=== PATIENT | male | born 2000 | race African-American/Black ===

== ENCOUNTER 2021-10-04 15:34 | Inpatient (IN) | payer MEDICAID, SELFPAY ==
--- NOTE | ~2021-10-04 | US_ITS ---
EXAMINATION: US ABDOMEN LIMITED CLINICAL INFORMATION: Right upper quadrant pain. Rule out gallstone.. COMPARISON: None TECHNIQUE: Real-time imaging of the right upper quadrant abdominal viscera. FINDINGS: GALLBLADDER: The gallbladder wall thickness is 0.2 cm. There is no echogenic stones, polyp or mass. There is echogenic mobile debris visualized. COMMON BILE DUCT: Normal in caliber measuring 0.5 cm in diameter. US/US abdomen limited IMPRESSION: Diffuse echogenic debris seen gallbladder without any echogenic stones or wall thickening. No pericholecystic fluid collection.
--- NOTE | ~2021-10-04 | NM_ITS ---
EXAMINATION: HEPATOBILIARY SCAN WITHOUT PHARMACY CLINICAL INFORMATION: Right upper quadrant/epigastric pain. COMPARISON: Ultrasound abdomen 09/26/2021. TECHNIQUE: Following intravenous administration of 5 mCi of 90 9M technetium mebrofenin, imaging over the right upper quadrant was obtained up to 60 minutes. FINDINGS: There is normal hepatic uptake without focal defect. The gallbladder is visualized by 12 minutes and the entire CBD is visualized by 12 minutes. The small bowel is visualized by 29 minutes. NM/NM hepatobiliary wo pharm IMPRESSION: Normal HIDA scan Patent cystic duct and CBD.
--- NOTE | ~2021-10-04 | CT_ITS ---
EXAMINATION: CT ABDOMEN AND PELVIS WITH CONTRAST CLINICAL INFORMATION: Diarrhea, vomiting. Evaluate for evaluate for UC flare up COMPARISON: None TECHNIQUE: Multidetector volumetric images were obtained from the superior aspect of the liver through the pubic symphysis following administration 85 mL of Omnipaque 350 intravenous contrast. Sagittal and coronal reformatted images were obtained on the technologist's workstation. Oral contrast: No This CT examination was performed using dose optimization techniques as appropriate, variously including the following: *Automated exposure control *Adjustment of mA and/or kV according to patient size (this includes techniques or standardized protocols for targeted exams where dose is matched to indication/reason for exam; i.e. extremities or head) *Use of iterative reconstruction technique DLP: 497 mGy-cm FINDINGS: LUNG BASES: The visualized lung bases are unremarkable. LIVER, GALLBLADDER, AND BILIARY TREE: The liver is normal in size, shape, and attenuation. No focal hepatic lesion or biliary ductal dilatation is present. The gallbladder is unremarkable with no evidence of radiopaque gallstones, gallbladder wall thickening, or obvious pericholecystic inflammatory changes. PANCREAS: Unremarkable. SPLEEN: Unremarkable. ADRENAL GLANDS: Unremarkable. KIDNEYS AND URETERS: The kidneys are normal in size, shape, and attenuation. No hydronephrosis, hydroureter, or calculi seen. No perinephric stranding. BLADDER: Unremarkable. GASTROINTESTINAL TRACT: There is scattered stool and gas seen throughout the colon without any significant distention. There is not cystic mild mural thickening of descending colon likely underdistention. Nondistended fluid-filled small bowel loops are seen in the pelvis. Appendix is not visualized no free air or free fluid seen. ABDOMINAL WALL: No significant hernia is appreciated. LYMPH NODES: Normal. VASCULAR: Unremarkable. PELVIC VISCERA: Unremarkable. OSSEOUS STRUCTURES: Unremarkable. CT/CT abdomen pelvis w con IMPRESSION: No acute intra-abdominal process seen. Fleischner guidelines were followed.
[2021-10-04 16:38] VITALS: BP 140/73; PULSE 69; RESP 18; TEMP 37.2; O2SAT 100; BMI 23.1
[2021-10-04 18:00] VITALS: BP 124/68; PULSE 56; RESP 16; TEMP 37.2; O2SAT 100
--- NOTE | 2021-10-04 19:15 | ED_ITS ---
HPI - Abdominal Pain General Chief Complaint: Abdominal Pain Stated Complaint: abd pain colitis Time Seen by Provider: 10/04/21 18:46 Source: patient Mode of arrival: ambulatory Limitations: no limitations History of Present Illness HPI narrative: 21-year-old male with a history of ulcerative colitis and sclerosing cholangitis who presents emergency department for evaluation of abdominal pain, nausea, vomiting, diarrhea and weight loss x1 week. The patient points to his epigastric area when asked to localize his pain. He states the pain is a constant, squeezing sensation which came on gradually but is gotten progressively worse. He states that the pain is now 8/10. The patient has had constant nausea with 6 episodes of vomiting per day. He states he is vomiting bile. He also states that his 3-4 episodes of diarrhea per day. His diarrhea consists of liquidy, green mucus with no blood. He states he has not been able to eat over the last 24 hours but he is able to drink some liquid. He states th at he has lost 15 lb over the past week. The patient has a boston cutter at [facility] but it does not have 1 here in this area. The patient is treated with Humira once a week. He states that he was on Ursodiol for elevated bilirubins. He states that he had ulcers in his mouth with increased epigastric pain 2 months prior and stop the Ursodiol which seemed improved the symptoms. He also was concerned that his pain was caused by his Humira therefore he stop this 3 weeks ago as well. He states that he has received the Moderna vaccine times 2 and he has received a booster shot as well. States that he tested himself yesterday at home for COVID-19 and this was negative. Related Data Allergies Allergy/AdvReac Type Severity Reaction Status Date / Time amoxicillin [From Allergy Hives Verified 10/04/21 16:38 Augmentin] clavulanic acid Allergy Hives Verified 10/04/21 16:38 [From Augmentin] Review of Systems Review of Systems Yes all other systems are reviewed and are negative Physical Exam Verdana 4l Vital Signs: Verdana 4d Verdana 4d Vital Signs: Verdana 4d Verdana 4Bd Last Vital Signs Verdana 4d Shut Off Worker New 4d Shut Off Worker New 4d Temp 98.2 F 10/04/21 20:52 Shut Off Worker New 4d Pulse 66 10/04/21 21:22 Shut Off Worker New 4d Resp 10/04/21 20:52 BP 127/68 10/04/21 21:22 Pulse Ox 100 10/04/21 21:22 BMI result Body Mass Index 23.1 Const: Other: Very pleasant and cooperative male patient, does not appear to be in distress, answers all questions appropriately HENMT: Head: Yes normal to inspection, Yes normocephalic and Yes atraumatic Ears: external ears normal General nose exam: Normal external nose present Face and sinus: Yes normal facial exam Mouth: Normal oral and palatal mucosa present Throat: Yes posterior oropharynx normal Eyes: General: appearance normal, both eyes and all related structures Pupils: Equal, round and reactive pupils present Neck: Neck: Yes normal visual inspection, Yes no lymphadenopathy, Yes trachea midline and Yes supple Chest: Chest palpation & inspection: normal inspection of the chest and normal palpation of entire chest wall Resp: Effort & Inspection: normal respiratory effort and able to speak in complete sentences Auscultation: clear to auscultation bilaterally Cardio: Rate: regular rate Rhythm: regular rhythm Heart sounds: S1 normal heart sound present, S2 normal heart sound present and no murmurs GI: Inspection: Yes normal to inspection Palpation (GI): Soft to palpation, Tenderness to palpation present (GI) in the epigastrum (Moderate) and in the RLQ (Moderate) and no guarding Auscultation: normal bowel sounds : General: Yes no CVA tenderness Back/Spine/Pelvis: Back: no CVA tenderness Skin: General skin exam: no rashes or lesions noted Neuro: Cranial nerves: Yes CN's II-XII intact bilaterally and Yes Equal, round and reactive pupils present Cognition (Neuro): normal cognition Motor exam (neuro): 5/5 motor strength present throughout Extrem: General: Yes normal to inspection Psych: Appearance: grossly normal Speech and movement: Normal speech and movement present Affect: normal affect Attitude: cooperative Thought process: Normal thought process present Thought content: Normal thought content present Course Course Course Narrative: 21-year-old male who presents emergency department for evaluation of abdominal pain, nausea, vomiting and diarrhea x1 week. The patient does have a history of ulcerative colitis and sclerosing cholangitis, he is being treated with Humira by his boston cutter, Dr. Rivera at [facility]. The patient has also had a 15 lb weight loss over the past week. Initial vital signs revealed an elevated blood pressure of 140/73 repeat was 124/68, vital signs were otherwise normal. Abdominal exam did reveal epigastric and left- sided abdominal tenderness. Patient's presentation is consistent with a flare- up of his ulcerative colitis. I did order a CBC, CMP, lipase, CRP, ESR, blood cultures x2, C diff, stool culture, CT abdomen pelvis with IV contrast. Patient was ordered to get normal saline IV x1 L, morphine 4 mg IV and Zofran 4 mg IV. 2201: The patient's laboratory evaluation was unremarkable. He had a normal CRP and sedimentation rate. CT scan of the abdomen pelvis did not reveal any evidence for ulcerative colitis or any other acute abnormality to explain his pain, nausea and vomiting. I did discuss the patient's presentation with the covering boston cutter, Dr. Fernández. He recommended that the patient be treated with IV PPIs, Zofran, IV fluids, stool specimens and diet as tolerated. He also requested an ultrasound in the morning to look at the patient gallbladder. I did discuss the patient's presentation with the covering hospita list, Dr. Perrin and the patient will be admitted for further treatment. MDM - Abdominal Pain Lab Data Result diagrams: 10/04/21 19:47 10/04/21 19:47 Labs: Lab Results 10/04/21 10/04/21 10/04/21 Range/Units 19:46 19:47 19:47 WBC 7.3 (4.8-10.8) X10*3/uL RBC 5.02 (4.60-5.80) X10*6/uL Hgb 15.7 (14.0-18.0) g/dl Hct 44.5 (42.0-52.0) % MCV 88.6 (80.0-98.0) fL MCH 31.3 (27.0-33.0) pg MCHC 35.3 (31.0-36.0) g/dl RDW 11.8 (11.0-16.0) % Plt Count 235 (160-400) X10*3/uL MPV 10.7 (9.4-12.4) fL Immature Gran % (Auto) 0.1 (0.0-0.4) % Neut % (Auto) 45.0 (45-73) % Lymph % (Auto) 49.7 H (20-40) % [place] % (Auto) 4.7 (2-11) % Eos % (Auto) 0.1 (0-4) % Baso % (Auto) 0.4 (0-2) % Lymph # (Auto) 3.6 (1.2-4.9) X10*3/uL [place] # (Auto) 0.3 (0.1-1.2) X10*3/uL Eos # (Auto) 0.0 (0.0-0.4) X10*3/uL Baso # (Auto) 0.0 (0.0-0.2) X10*3/uL Abs Immat Gran (auto) 0.01 (0.00-0.03) X10*3/uL Absolute Neuts (auto) 3.3 (2.0-8.3) x10*3/uL Absolute Nucleated RBC 0.000 (0.0-0.012) X10*3/uL Nucleated RBC % (auto) 0.0 (0.0-0.2) /100WBC ESR 2 (0-15) MM/HR Sodium (135-145) mmol/L Potassium (3.3-5.1) mmol/L Chloride (96-108) mmol/L Carbon Dioxide (22-29) mmol/L Anion Gap (12-20) BUN (9-16) mg/dL Creatinine (0.5-1.4) mg/dL Estim Creat Clear Calc Estimated GFR Random Glucose (60-115) mg/dL Lactic Acid 1.0 (0.5-2.0) mmol/L Calcium (8.4-10.2) mg/dL Total Bilirubin (0.0-1.0) mg/dL AST (5-37) U/L ALT (0-40) U/L Alkaline Phosphatase (39-117) U/L C-Reactive Protein (< or = 0.50) mg/dL Total Protein (6.5-8.0) g/dL Albumin (3.5-5.0) g/dL Lipase (8-78) U/L COVID-19 (ROBIN) (Negative) COVID-19 Clin Com 10/04/21 10/04/21 Range/Units 19:47 19:48 WBC (4.8-10.8) X10*3/uL RBC (4.60-5.80) X10*6/uL Hgb (14.0-18.0) g/dl Hct (42.0-52.0) % MCV (80.0-98.0) fL MCH (27.0-33.0) pg MCHC (31.0-36.0) g/dl RDW (11.0-16.0) % Plt Count (160-400) X10*3/uL MPV (9.4-12.4) fL Immature Gran % (Auto) (0.0-0.4) % Neut % (Auto) (45-73) % Lymph % (Auto) (20-40) % [place] % (Auto) (2-11) % Eos % (Auto) (0-4) % Baso % (Auto) (0-2) % Lymph # (Auto) (1.2-4.9) X10*3/uL [place] # (Auto) (0.1-1.2) X10*3/uL Eos # (Auto) (0.0-0.4) X10*3/uL Baso # (Auto) (0.0-0.2) X10*3/uL Abs Immat Gran (auto) (0.00-0.03) X10*3/uL Absolute Neuts (auto) (2.0-8.3) x10*3/uL Absolute Nucleated RBC (0.0-0.012) X10*3/uL Nucleated RBC % (auto) (0.0-0.2) /100WBC ESR (0-15) MM/HR Sodium 141 (135-145) mmol/L Potassium 4.0 (3.3-5.1) mmol/L Chloride 102 (96-108) mmol/L Carbon Dioxide 27 (22-29) mmol/L Anion Gap 16 (12-20) BUN 12 (9-16) mg/dL Creatinine 1.10 (0.5-1.4) mg/dL Estim Creat Clear Calc 134.0 Estimated GFR > 60 Random Glucose 91 (60-115) mg/dL Lactic Acid (0.5-2.0) mmol/L Calcium 10.8 H (8.4-10.2) mg/dL Total Bilirubin 0.9 (0.0-1.0) mg/dL AST 20 (5-37) U/L ALT 13 (0-40) U/L Alkaline Phosphatase 59 (39-117) U/L C-Reactive Protein < 0.02 (< or = 0.50) mg/dL Total Protein 9.0 H (6.5-8.0) g/dL Albumin 5.5 H (3.5-5.0) g/dL Lipase 13 (8-78) U/L COVID-19 (ROBIN) Negative (Negative) COVID-19 Clin Com See Note [facility] Past Medical History [facility] Narrative: Past medical history: Ulcerative colitis, sclerosing cholangitis. Past surgical history: None. Social history: Patient lives in [facility] he has been under increased stress secondary to his work and family issues. He denies tobacco use. He rarely drinks alcohol. He denies drug use. Social History Social History Alcohol intake: current Alcohol intake frequency: a few times a month Patient Tobacco Use Status: Never used Tobacco Use of substances other than those prescribed or required for medical reasons: No Advance Directives: No Advance Directives Information Provided: Yes
[2021-10-04 19:49] VITALS: RESP 18
[2021-10-04] MEDS: Morphine Sulfate 4 MG/ML CARTRIDGE IVPUSH ×2 (19:49→21:23)
[2021-10-04] MEDS: ondansetron HCL 4 MG/2 ML VIAL IVPUSH (19:49)
[2021-10-04] MEDS: 0.9 % Sodium Chloride 1,000 ML 999 ML IV (19:50)
[2021-10-04 19:57] LABS: MANUAL DIFF FLAG NO
[2021-10-04 19:59] LABS: Basophils Percent Auto 0.4 % (0-2); Eosinophils Percent Auto 0.1 % (0-4); Hematocrit 44.5 % (42.0-52.0); Hemoglobin 15.7 g/dl (14.0-18.0); Imm Gran Abs Auto 0.01 X10*3/uL (0.00-0.03); Imm Gran Pct Auto 0.1 % (0.0-0.4); Lymphocytes Absolute Auto 3.6 X10*3/uL (1.2-4.9); Lymphocytes Percent Auto 49.7 % (20-40); Mean Corpuscular HGB Conc 35.3 g/dl (31.0-36.0); Mean Corpuscular Hemoglobin 31.3 pg (27.0-33.0); Mean Corpuscular Volume 88.6 fL (80.0-98.0); Mean Platelet Volume 10.7 fL (9.4-12.4); Monocytes Absolute Auto 0.3 X10*3/uL (0.1-1.2); Monocytes Percent Auto 4.7 % (2-11); Neutrophils Absolute Auto 3.3 x10*3/uL (2.0-8.3); Platelet Count 235 X10*3/uL (160-400); Red Blood Count 5.02 X10*6/uL (4.60-5.80); Red Cell Distribution Width 11.8 % (11.0-16.0); White Blood Count 7.3 X10*3/uL (4.8-10.8)
[2021-10-04 20:16] LABS: COVID-19 Test Negative (Negative)
[2021-10-04 20:21] LABS: Alanine Aminotransferase 13 U/L (0-40); Albumin Level 5.5 g/dL (3.5-5.0); Alkaline Phosphatase 59 U/L (39-117); Anion Gap 16 (12-20); Aspartate Amino Transferase 20 U/L (5-37); Bilirubin Total 0.9 mg/dL (0.0-1.0); Blood Urea Nitrogen 12 mg/dL (9-16); C Reactive Protein < 0.02 mg/dL (< or = 0.50); Calcium 10.8 mg/dL (8.4-10.2); Carbon Dioxide 27 mmol/L (22-29); Chloride 102 mmol/L (96-108); Estimated Glomerular Filt Rate > 60; Glucose Random 91 mg/dL (60-115); Lipase 13 U/L (8-78); Sodium 141 mmol/L (135-145)
[2021-10-04] MEDS: iohexoL 350 MG/ML 100 ML INFUS..BTL IV (20:42)
[2021-10-04 20:44] LABS: Erythrocyte Sedimentation Rate 2 MM/HR (0-15)
[2021-10-04 20:52] VITALS: BP 136/69; PULSE 73; RESP 20; TEMP 36.8; O2SAT 100
[2021-10-04 21:22] VITALS: BP 127/68; PULSE 66; O2SAT 100
[2021-10-04] MEDS: Pantoprazole Sodium 40 MG/10 ML VIAL IVPUSH (21:23)
--- NOTE | 2021-10-04 22:10 | P.HPHOSP_ITS ---
History of Present Illness Date of Service: 10/04/21 Chief Complaint: n,v,d This is a 21-year-old male with past medical history of ulcerative colitis and sclerosing cholangitis who presents to the hospital with complaints of abdominal pain, nausea and vomiting,as well as diarrhea for the past 1 week that has been progressively getting worse Pain is around the epigastric area, constant, nonradiating, 8/10, no relieving factors. His had about 6 episodes of n/v daily, as well as non-bloody dirrhea 3-4 episodes each day. . Has not been able to keep anything down for the past 2 days and has lost significant weight over the last week- reports about 15 lbs. of note The patient is treated with Humira once a week.? He states that he was on Ursodiol for elevated bilirubins.? He states that he had? ulcers in his mouth with increased epigastric pain 2 months prior and stop the Ursodiol which seemed improved the symptoms.? He also was concerned that his pain was caused by his Humira therefore he stop this 3 weeks ago as well. - pt confirmed this information on my exam On arrival to the ED patient hemodynamically stable with no significant abnormal vitals Labs reviewed are unremarkable ABD/pelvic CT showed no acute intra-abdominal process, Gastroenterology was consulted, recommended PPI, antiemetics and admission for evaluation. C diff pending Review of Systems Verdana 4l Review of Systems: Yes all other systems are reviewed and Verdana 4d are negative [facility] Medical History (Updated 10/05/21 @ 06:59 by Rukhsana Perrin MD) Sclerosing cholangitis Ulcerative colitis Pertinent family history: No hx of CAD Surgical History (Updated 10/05/21 @ 06:59 by Rukhsana Perrin MD) No pertinent past surgical history Social History Household Members: Significant Other and Friend(s) Housing: Apartment Alcohol intake: current Alcohol intake frequency: a few times a month Patient Tobacco Use Status: Never used Tobacco Use of substances other than those prescribed or required for medical reasons: No Have you been hit, kicked, punched, or otherwise hurt by someone within the past year? If so, by whom?: No Do you feel safe in your current relationship?: Yes Is there a partner from a previous relationship who is making you feel unsafe now?: No Are you made to feel afraid or neglected: No Advance Directives: No Advance Directives Information Provided: Yes Do you have thoughts of harming others: None Do you have a plan to hurt others: No Plan Recently lost weight without trying: No Eating poorly because of decreased appetite: No Nutrition Risks: No Nutritional Risk Poor oral hygiene: No Meds Allergies Allergy/AdvReac Type Severity Reaction Status Date / Time amoxicillin [From Allergy Hives Verified 10/04/21 16:38 Augmentin] clavulanic acid Allergy Hives Verified 10/04/21 16:38 [From Augmentin] Physical Exam Verdana 4l Vital Signs and Narrative: Verdana 4d Verdana 4d Vital Signs: Verdana 4d Verdana 4Bd Last Vital Signs Verdana 4d Improvement Director New 4d Improvement Director New 4d Temp 98.2 F 10/04/21 20:52 Improvement Director New 4d Pulse 66 10/04/21 21:22 Improvement Director New 4d Resp 20 10/04/21 20:52 BP 127/68 10/04/21 21:22 Pulse Ox 100 10/04/21 21:22 BMI result Body Mass Index 23.1 Results Labs CBC and Chem 7: 10/04/21 19:47 10/04/21 19:47 Labs: Laboratory Results - last 24 hr 10/04/21 10/04/21 10/04/21 19:46 19:47 19:47 MCV 88.6 MCH 31.3 MCHC 35.3 RDW 11.8 Plt Count 235 MPV 10.7 Immature Gran % (Auto) 0.1 Neut % (Auto) 45.0 Lymph % (Auto) 49.7 H [place] % (Auto) 4.7 Eos % (Auto) 0.1 Baso % (Auto) 0.4 Lymph # (Auto) 3.6 [place] # (Auto) 0.3 Eos # (Auto) 0.0 Baso # (Auto) 0.0 Abs Immat Gran (auto) 0.01 Absolute Neuts (auto) 3.3 Absolute Nucleated RBC 0.000 Nucleated RBC % (auto) 0.0 ESR 2 Anion Gap Estim Creat Clear Calc Estimated GFR Random Glucose Lactic Acid 1.0 Calcium Total Bilirubin AST ALT Alkaline Phosphatase C-Reactive Protein Total Protein Albumin Lipase COVID-19 (ROBIN) COVID-19 Clin Com 10/04/21 10/04/21 19:47 19:48 MCV MCH MCHC RDW Plt Count MPV Immature Gran % (Auto) Neut % (Auto) Lymph % (Auto) [place] % (Auto) Eos % (Auto) Baso % (Auto) Lymph # (Auto) [place] # (Auto) Eos # (Auto) Baso # (Auto) Abs Immat Gran (auto) Absolute Neuts (auto) Absolute Nucleated RBC Nucleated RBC % (auto) ESR Anion Gap 16 Estim Creat Clear Calc 134.0 Estimated GFR > 60 Random Glucose 91 Lactic Acid Calcium 10.8 H Total Bilirubin 0.9 AST 20 ALT 13 Alkaline Phosphatase 59 C-Reactive Protein < 0.02 Total Protein 9.0 H Albumin 5.5 H Lipase 13 COVID-19 (ROBIN) Negative COVID-19 Clin Com See Note Imaging Radiologist's Impressions: Impressions Abdomen/Pelvis CT 10/04/21 20:59 IMPRESSION: No acute intra-abdominal process seen. Fleischner guidelines were followed. Assessment and Plan (1) Abdominal pain, epigastric: Status: Acute (2) Gastroenteritis: Status: Acute Plan 21 yo M with past medical history of ulcerative colitis and sclerosing cholangitis presents to the hospital with abdominal pain found to have possible gastroenteritis # abd pain, nausea, vomiting, diarrhea - likely 2/2 UC flare vs gastroenteritis - CT abd negative - GI consulted recommended PPI, zofran, IV fluids - C diff and stool cultures pending - supportive measures - will need follow up with GI op to resume his Humira DVT ppx: lovenox Quality Stroke Does the patient have a stroke diagnosis?: No VTE Prior VTE?: No VTE Risk Level:: Medical - moderate - high VTE Device Contraindication: Treatment Not Indicated VTE Drug Contraindication: N/A - Med Ordered
[2021-10-04] MEDS: Lactated Ringers 1,000 ML 100 ML IVCONT (22:49)
[2021-10-05] VITALS (9 sets, daily range): BP systolic 94–138; BP diastolic 50–78; PULSE 40–50; RESP 15–18; TEMP 35.6–36.6; O2SAT 98–100
[2021-10-05] MEDS: Enoxaparin Sodium 40 MG/0.4 ML SYRINGE SUBCUT
[2021-10-05 06:22] LABS: Basophils Percent Auto 0.3 % (0-2); Eosinophils Absolute Auto 0.1 X10*3/uL (0.0-0.4); Hematocrit 37.3 % (42.0-52.0); Hemoglobin 12.8 g/dl (14.0-18.0); Imm Gran Abs Auto 0.01 X10*3/uL (0.00-0.03); Imm Gran Pct Auto 0.2 % (0.0-0.4); Lymphocytes Absolute Auto 4.4 X10*3/uL (1.2-4.9); MANUAL DIFF FLAG SCAN; Mean Corpuscular HGB Conc 34.3 g/dl (31.0-36.0); Mean Corpuscular Hemoglobin 30.8 pg (27.0-33.0); Mean Corpuscular Volume 89.9 fL (80.0-98.0); Mean Platelet Volume 10.9 fL (9.4-12.4); Monocytes Absolute Auto 0.4 X10*3/uL (0.1-1.2); Monocytes Percent Auto 5.6 % (2-11); Neutrophils Absolute Auto 1.5 x10*3/uL (2.0-8.3); Neutrophils Percent Auto 22.9 % (45-73); Platelet Count 194 X10*3/uL (160-400); Red Blood Count 4.15 X10*6/uL (4.60-5.80); Red Cell Distribution Width 11.7 % (11.0-16.0); SCAN SMEAR FLAG 1; White Blood Count 6.3 X10*3/uL (4.8-10.8)
[2021-10-05] MEDS: Morphine Sulfate 4 MG/ML CARTRIDGE IVPUSH ×2 (06:48→11:10)
[2021-10-05] MEDS: Pantoprazole Sodium 40 MG/10 ML VIAL IVPUSH ×2 (06:49→16:13)
[2021-10-05 06:50] LABS: Anion Gap 9 (12-20); Blood Urea Nitrogen 12 mg/dL (9-16); Calcium 9.5 mg/dL (8.4-10.2); Carbon Dioxide 30 mmol/L (22-29); Chloride 106 mmol/L (96-108); Creatinine Clr Calc Pharmacy 143.1; Estimated Glomerular Filt Rate > 60; Glucose Random 80 mg/dL (60-115); Potassium 4.4 mmol/L (3.3-5.1); Sodium 141 mmol/L (135-145)
[2021-10-05 07:23] LABS: SLIDE REVIEW VERIFIED
--- NOTE | 2021-10-05 07:55 | P.PNIM_ITS ---
Subjective Subjective Date of Service: 10/05/21 Interval History: Ucolitis Review of Systems persistent nausea vomiting abd pain slightly better Physical Exam Verdana 4l Vital Signs: Verdana 4d Verdana 4d Vital Signs: Verdana 4d Verdana 4Bd Last Vital Signs Verdana 4d Cigarette Making Examiner 4d Cigarette Making Examiner 4d Temp 96.9 F 10/05/21 02:00 Cigarette Making Examiner New 4d Pulse 45 L 10/05/21 02:00 Cigarette Making Examiner New 4d Resp 18 10/05/21 02:00 BP 137/57 L 10/05/21 02:00 Pulse Ox 98 10/05/21 02:00 BMI result Body Mass Index 23.1 Appearance: Alert.? Oriented X3.? not in distress.? Eyes: Pupils equal, round and reactive to light.? Sclera nonicteric.? ENT: Pharynx normal.? Moist mucous membranes. cvs: rrr, [id number] , no murmur res: clear to auscultation ,no rhonchii or wheezing abd: no rebound or guarding ,abd pain improving in epigastric and still tense , bs present. ext pulses present , no cyanosis ,Gait well balanced well coordinated. neuro: axo3 , nonfocal. Objective Data Active Medications Acetaminophen (Acetaminophen 325 Mg Tablet) 650 mg PO Q6H PRN PRN Reason: Pain, Mild (Pain Scale 1-3) Docusate Sodium (Docusate Sodium 100 Mg Capsule) 100 mg PO DAILY PRN PRN Reason: Constipation Enoxaparin Sodium (Enoxaparin Sodium 40 Mg/0.4 Ml Syringe) 40 mg SUBCUT Q24H [facility] Last Admin: 10/05/21 00:00 Dose: 40 mg Documented by: JOHNNA Lactated Ringer's (Lr) 1,000 mls @ 100 mls/hr IVCONT .Q10H [facility] Last Admin: 10/04/21 22:49 Dose: 100 mls/hr Documented by: JOHNNA Morphine Sulfate (Morphine Sulfate 4 Mg/Ml Cartridge) 4 mg IVPUSH Q4H PRN; Protocol PRN Reason: Pain, Severe (Pain Scale 7-10) Last Admin: 10/05/21 06:48 Dose: 4 mg Documented by: DELROY Ondansetron HCl (Ondansetron Hcl 4 Mg/2 Ml Vial) 4 mg IVPUSH Q8H PRN PRN Reason: Nausea and Vomiting Pantoprazole Sodium (Pantoprazole Sodium 40 Mg/10 Ml Vial) 40 mg IVPUSH BID@0630,1630 [facility] Last Admin: 10/05/21 06:49 Dose: 40 mg Documented by: DELROY Sodium Chloride (0.9 % Sodium Chloride Flush 3 Ml Syringe) 3 ml IVFLUSH QSHIFT [facility] Last Admin: 10/05/21 07:20 Dose: Not Given Documented by: MOLLY Non-Admin Reason: IV Running Labs CBC & Chem 7: 10/05/21 06:00 10/05/21 06:00 Labs: Laboratory Results - last 24 hr 10/04/21 10/04/21 10/04/21 19:46 19:47 19:47 MCV 88.6 MCH 31.3 MCHC 35.3 RDW 11.8 Plt Count 235 MPV 10.7 Immature Gran % (Auto) 0.1 Neut % (Auto) 45.0 Lymph % (Auto) 49.7 H [place] % (Auto) 4.7 Eos % (Auto) 0.1 Baso % (Auto) 0.4 Lymph # (Auto) 3.6 [place] # (Auto) 0.3 Eos # (Auto) 0.0 Baso # (Auto) 0.0 Abs Immat Gran (auto) 0.01 Absolute Neuts (auto) 3.3 Absolute Nucleated RBC 0.000 Nucleated RBC % (auto) 0.0 Smear Tech's Comments ESR 2 Anion Gap Estim Creat Clear Calc Estimated GFR Random Glucose Lactic Acid 1.0 Calcium Total Bilirubin AST ALT Alkaline Phosphatase C-Reactive Protein Total Protein Albumin Lipase COVID-19 (ROBIN) COVID-19 Clin Com 10/04/21 10/04/21 10/05/21 19:47 19:48 06:00 MCV 89.9 MCH 30.8 MCHC 34.3 RDW 11.7 Plt Count 194 MPV 10.9 Immature Gran % (Auto) 0.2 Neut % (Auto) 22.9 L Lymph % (Auto) 70.0 H [place] % (Auto) 5.6 Eos % (Auto) 1.0 Baso % (Auto) 0.3 Lymph # (Auto) 4.4 [place] # (Auto) 0.4 Eos # (Auto) 0.1 Baso # (Auto) 0.0 Abs Immat Gran (auto) 0.01 Absolute Neuts (auto) 1.5 L Absolute Nucleated RBC 0.000 Nucleated RBC % (auto) 0.0 Smear Tech's Comments VERIFIED ESR Anion Gap 16 Estim Creat Clear Calc 134.0 Estimated GFR > 60 Random Glucose 91 Lactic Acid Calcium 10.8 H Total Bilirubin 0.9 AST 20 ALT 13 Alkaline Phosphatase 59 C-Reactive Protein < 0.02 Total Protein 9.0 H Albumin 5.5 H Lipase 13 COVID-19 (ROBIN) Negative COVID-19 Clin Com See Note 10/05/21 06:00 MCV MCH MCHC RDW Plt Count MPV Immature Gran % (Auto) Neut % (Auto) Lymph % (Auto) [place] % (Auto) Eos % (Auto) Baso % (Auto) Lymph # (Auto) [place] # (Auto) Eos # (Auto) Baso # (Auto) Abs Immat Gran (auto) Absolute Neuts (auto) Absolute Nucleated RBC Nucleated RBC % (auto) Smear Tech's Comments ESR Anion Gap 9 L Estim Creat Clear Calc 143.1 Estimated GFR > 60 Random Glucose 80 Lactic Acid Calcium 9.5 D Total Bilirubin AST ALT Alkaline Phosphatase C-Reactive Protein Total Protein Albumin Lipase COVID-19 (ROBIN) COVID-19 Clin Com Assessment and Plan (1) Gastroenteritis: Status: Acute (2) Abdominal pain, epigastric: Status: Acute Plan 21 yo M with past medical history of ulcerative colitis and sclerosing cholangi tis presents to the hospital with abdominal pain found to have possible gastroenteritis 1.abd pain, nausea, vomiting, diarrhea?- likely 2/2 UC flare vs gastroenteritis esr and crp normal,CT abd negative, C diff and stool cultures pending supportive measures , GI recommended PPI, zofran, IV fluids abd pain seems improving ,but still ca not tolerate diet will need follow? up with GI op to resume his Humira Gi eval pendin DVT ppx: lovenox Quality Stroke Does the patient have a stroke diagnosis?: No VTE Prior VTE?: No VTE Risk Level:: Medical - moderate - high VTE Device Contraindication: Treatment Not Indicated VTE Drug Contraindication: N/A - Med Ordered
--- NOTE | 2021-10-05 08:48 | PHA.MEDREC ---
med rec complete, patient not very sure of doses, has not been on his medications for a week or so Pharmacy Consult ? Medication Reconciliation Pharmacy has completed the medication reconciliation.
--- NOTE | 2021-10-05 09:08 | MHC.CM.PN ---
PATIENT LIVES WITH FRIENDS HE IS FULLY INDEPENDENT WITH HIS ADLS CAR IS IN LOT. HE NO LONGER HAS A PCP BUT IS UNABLE TO RECALL THE NAME. PATIENT ALSO STATES HE HAS NOT SEEN THE PCP IN QUITE SOME TIME. PATIENT REPORTS BEING COVID VACCINATED AND A BOOSTER (MODERNA SERIES) BUT DOES NOT HAVE HIS SHOT RECORD ON HIM. NO HCP ON FILE. WHEN PATIENT IS FEELING BETTER, HE WILL CONSIDER COMPLETING ONE FOR MEDICAL RECORDS. PLAN IS HOME - SELF CARE. CASE MANAGEMENT FOLLOWING FOR ANY CHANGES IN PLAN.
[2021-10-05] MEDS: Lactated Ringers 1,000 ML 100 ML IVCONT (11:11)
[2021-10-05] MEDS: ondansetron HCL 4 MG/2 ML VIAL IVPUSH ×3 (12:37→19:20)
[2021-10-05] MEDS: HYDROmorphone HCl 1 MG/ML SYRINGE 0.5 MG IVPUSH ×2 (14:36→22:00)
[2021-10-05] MEDS: 0.9 % Sodium Chloride Flush 3 ML SYRINGE IVFLUSH (14:37)
--- NOTE | 2021-10-05 16:08 | PM.EVENT ---
Event Note Date of Service: 10/05/21 Event Note: GI Consult-Full note dictated Imp: Overall, his 1 week history of primarily UGI c/o upper abdominal pain, anorexia, and vomiting with just some loose stools seems different than his usual colitis flares that he has had in the past. His unremarkable CT in regard to signs of active colitis, normal ESR and CRP, his GB U/S with debris , and his tenderness in the RUQ/Epigastric areas makes me more suspicious for something other than colitis, such as GB disease or peptic ulcer disease. He denies any NSAIDs, travel, ill contacts, antibiotic use. alcohol, marijuana, drugs, nor cigarettes. Rec: I would continue to hold off on steroids since this doesn't seem c/w a flare of his ulcerative colitis at this time. Continue the IV PPI and supportive care otherwise. I will order a HIDA scan with [facility] for further assessment of the gallbladder(hopefully they can do it tomorrow). Continue clear liquids for now. He may need a surgery consult and/or an upper endoscopy pending the results and his clinical course. I will also reach out to his [facility] MD, Dr. Pearson, . D/W patient in detail and he is comfortable with this plan. Thanks
[2021-10-05] MEDS: HYDROmorphone HCl 0.5 MG/0.5 ML SYRINGE IVPUSH (17:27)
[2021-10-05] MEDS: Metoclopramide HCl 10 MG/2 ML VIAL 5 MG IVPUSH (17:28)
--- NOTE | 2021-10-05 20:09 | CONS_ITS ---
DATE OF SERVICE: 10/05/2021 REASON FOR CONSULTATION: Abdominal pain, vomiting, diarrhea, and history of ulcerative colitis. HISTORY OF PRESENT ILLNESS: This has been obtained from the patient and the medical record. The patient is a 21-year-old male who describes a history of ulcerative colitis in himself since 4th grade. His GI [facility] [place] with a phone number of [phone]. He most recently has been treated with Humira injections on a weekly basis, although he has not used that for about 2 to 3 weeks now as he has been unable to get his usual supply of medicine as he currently lives in [place] and the medication is delivered to his mother's home in [place]. In any event, other issues have included sclerosing cholangitis and arthritis by his description. Aside from the Humira, he had also been on Ursodiol up until about 2 months ago. The patient does describe a flare of his colitis about 2 months ago for which he was on a very short course of prednisone for about 2 weeks with resolution of the symptoms. Most recently, he had been feeling quite well up until the past week. He describes the onset of some anorexia with associated nausea, vomiting, and upper abdominal pain which he localizes primarily to the epigastric and right upper quadrants. He has had some loose bowel movements, but there has been no mucus, nor bleeding. His main issue is that of the upper GI complaints. Prior to the past week, he had been feeling well. He had not had any recent travel, ill contacts, antibiotic use, NSAID use, nor any other new medication. He has not noticed any jaundice, fevers, urinary symptoms, nor blood in the vomitus. 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 He has not been told of previous gallbladder trouble, but is not very sure about that. He thinks he may have had some ulcers in the stomach, but is not sure about that either and does describe a previous history of upper endoscopies but nothing recently. His most recent colonoscopy was last summer and as far as he knows, this was normal. Since hospitalization here, he is still complaining of the pain localized to the epigastric and right upper quadrant area. He has not had any bowel movements today. He did try some clear liquids today, including some broth, and had subsequent nausea and vomiting along with the ongoing upper abdominal pain. He has been afebrile. His medications at home had included the Humira, although again he has missed the last 2 to 3 doses. He has been off his ursodiol for about 2 months by his description. His medications here in the hospital include acetaminophen prn,, Colace p.r.n., Lovenox, Dilaudid p.r.n., morphine p.r.n., Zofran p.r.n., IV Protonix. PAST MEDICAL HISTORY: Ulcerative colitis with associated sclerosing cholangitis and arthritis by his report. He denies any other medical problems. He denies any surgeries in relation to the ulcerative colitis. SOCIAL HISTORY: He works for a [employer]. He is single. He does not smoke nor use any alcohol. FAMILY HISTORY: Noncontributory. REVIEW OF SYSTEMS: CONSTITUTIONAL: Up until the past week he had been feeling well but now has had the GI complaints and thinks he has lost about 10 pounds at least, although he has not weighed himself. SKIN: Without rash. No pruritus. CARDIAC: No chest pain. PULMONARY: No cough, no hemoptysis. GI: As above. URINARY: No dysuria, no hematuria. PHYSICAL EXAMINATION: GENERAL: The patient is a pleasant, alert, comfortable-appearing male. SKIN: Warm and dry. Anicteric sclerae. VITAL SIGNS: He has been afebrile. NECK: Supple. CHEST: Clear. CARDIAC: Normal S1 and S2. ABDOMEN: Soft, nondistended with normal bowel sounds. The only tenderness to palpation is in the epigastric and in the right upper quadrant area. No masses nor organomegaly EXTREMITIES: Without edema. LABORATORY DATA: White blood cell count 7.3. Hemoglobin 15.7 on admission and 12.8 this morning. Platelets 235,000. Sedimentation rate was 2. Normal chemistries. BUN 12, creatinine 1.1. Lactic acid level 1.0. Normal liver profile, C-reactive protein of less than 0.02, albumin 5.5, lipase 13, normal TSH. COVID was negative. Stool specimens have been ordered but not yet sent as he has not had any further diarrhea. His abdominal CT scan did not show any definitive sign of any colitis nor any other significant intraabdominal processes that would account for his pain. He did have an abdominal ultrasound that describes some debris in the gallbladder, but without any ultrasound evidence of cholecystitis. IMPRESSION: Given the patient's clinical history, the great majority of the symptoms seem to be upper GI in origin. He obviously has the underlying colitis but based on his history and symptoms, this does not seem typical for a flare of his colitis both by his history and the workup. Therefore, I would hold off on starting any steroids. Given the location of his symptoms and the upper GI complaints, as well as the ultrasound finding of some nonspecific changes of the gallbladder, I would order a HIDA scan with [facility] to inspect for any component of cholecystitis. Another possibility could be that of some type of gastroenteritis, but this seems to be lasting a rather long time for that plus he has a significant amount of abdominal pain with this. Another possibility would be that of something such as peptic ulcer disease. At this point, I recommended that we continue his IV PPI and supportive care. I have ordered a HIDA scan with [facility] for further evaluation. I would continue his clear liquids for now. Depending upon the findings and his clinical course, he may need a surgical consultation and/or an upper endoscopy for further evaluation. I have already tried to reach his [place] waist pleater but the answering service would not picker/puller. I will try again later. This has all been discussed in detail with the patient and he is comfortable with the plan. Thank you for this consultation. MD KANDY Camarena/DEDRA / [phone] JENNIFER
[2021-10-06] VITALS (9 sets, daily range): BP systolic 104–152; BP diastolic 52–74; PULSE 40–67; RESP 17–20; TEMP 36–37; O2SAT 98–100
[2021-10-06] MEDS: Lactated Ringers 1,000 ML 100 ML IVCONT ×2 (05:21→19:53)
[2021-10-06] MEDS: Pantoprazole Sodium 40 MG/10 ML VIAL IVPUSH ×2 (05:22→15:57)
[2021-10-06] MEDS: HYDROmorphone HCl 1 MG/ML SYRINGE 0.5 MG IVPUSH ×4 (05:22→18:33)
[2021-10-06 05:59] LABS: Alanine Aminotransferase 12 U/L (0-40); Alkaline Phosphatase 40 U/L (39-117); Amylase 44 U/L (28-100); Aspartate Amino Transferase 13 U/L (5-37); Bilirubin Direct 0.4 mg/dL (0.0-0.5); Bilirubin Total 0.8 mg/dL (0.0-1.0); Lipase 20 U/L (8-78)
[2021-10-06 06:00] LABS: Anion Gap 12 (12-20); Blood Urea Nitrogen 8 mg/dL (9-16); Calcium 9.3 mg/dL (8.4-10.2); Carbon Dioxide 29 mmol/L (22-29); Chloride 104 mmol/L (96-108); Estimated Glomerular Filt Rate > 60; Glucose Random 92 mg/dL (60-115); Potassium 4.1 mmol/L (3.3-5.1); Sodium 141 mmol/L (135-145)
[2021-10-06 06:23] LABS: Basophils Percent Auto 0.4 % (0-2); Eosinophils Absolute Auto 0.1 X10*3/uL (0.0-0.4); Hematocrit 37.5 % (42.0-52.0); Hemoglobin 12.6 g/dl (14.0-18.0); Imm Gran Abs Auto 0.01 X10*3/uL (0.00-0.03); Imm Gran Pct Auto 0.2 % (0.0-0.4); Lymphocytes Absolute Auto 3.8 X10*3/uL (1.2-4.9); Lymphocytes Percent Auto 69.7 % (20-40); MANUAL DIFF FLAG SCAN; Mean Corpuscular HGB Conc 33.6 g/dl (31.0-36.0); Mean Corpuscular Hemoglobin 30.5 pg (27.0-33.0); Mean Corpuscular Volume 90.8 fL (80.0-98.0); Mean Platelet Volume 11.3 fL (9.4-12.4); Monocytes Absolute Auto 0.4 X10*3/uL (0.1-1.2); Monocytes Percent Auto 6.7 % (2-11); Neutrophils Absolute Auto 1.1 x10*3/uL (2.0-8.3); Platelet Count 184 X10*3/uL (160-400); Red Blood Count 4.13 X10*6/uL (4.60-5.80); Red Cell Distribution Width 11.7 % (11.0-16.0); SCAN SMEAR FLAG 1; White Blood Count 5.4 X10*3/uL (4.8-10.8)
[2021-10-06 07:52] LABS: SLIDE REVIEW VERIFIED
--- NOTE | 2021-10-06 08:21 | P.PNIM_ITS ---
Subjective Subjective Date of Service: 10/06/21 Interval History: Ulcerative colitis Review of Systems persistent nausea vomiting abd pain slightly better Physical Exam Verdana 4l Vital Signs: Verdana 4d Verdana 4d Vital Signs: Verdana 4d Verdana 4Bd Last Vital Signs Verdana 4d Rhinestone Setter New 4d Fatimah New 4d Temp 97.5 F 10/06/21 07:22 Rhinestone Setter New 4d Pulse 42 L 10/06/21 07:22 Rhinestone Setter New 4d Resp 20 10/06/21 07:22 BP 104/52 L 10/06/21 07:22 Pulse Ox 100 10/06/21 07:22 BMI result Body Mass Index 23.1 Appearance: Alert.? Oriented X3.? not in distress.? Eyes: Pupils equal, round and reactive to light.? Sclera nonicteric.? ENT: Pharynx normal.? Moist mucous membranes. cvs: rrr, [id number] , no murmur res: clear to auscultation ,no rhonchii or wheezing abd: no rebound or guarding ,abd pain improving in epigastric and still tense , bs present. ext pulses present , no cyanosis ,Gait well balanced well coordinated. neuro: axo3 , nonfocal. Objective Data Active Medications Acetaminophen (Acetaminophen 325 Mg Tablet) 650 mg PO Q6H PRN PRN Reason: Pain, Mild (Pain Scale 1-3) Docusate Sodium (Docusate Sodium 100 Mg Capsule) 100 mg PO DAILY PRN PRN Reason: Constipation Enoxaparin Sodium (Enoxaparin Sodium 40 Mg/0.4 Ml Syringe) 40 mg SUBCUT Q24H [facility] Last Admin: 10/05/21 23:47 Dose: Not Given Documented by: DELROY Non-Admin Reason: Patient Refused Hydromorphone HCl (Hydromorphone Hcl 1 Mg/Ml Syringe) 0.5 mg IVPUSH Q4H PRN; Protocol PRN Reason: Pain, Mild (Pain Scale 1-3) Last Admin: 10/06/21 05:22 Dose: 0.5 mg Documented by: DELROY Lactated Ringer's (Lr) 1,000 mls @ 100 mls/hr IVCONT .Q10H [facility] Last Admin: 10/06/21 05:21 Dose: 100 mls/hr Documented by: DELROY Lidocaine (Lidocaine 4 % Patch Adh..Patch) 1 patch TRANSDERMA DAILY [facility]; Protocol Last Admin: 10/06/21 07:27 Dose: Not Given Documented by: MOLLY Non-Admin Reason: Patient Refused Ondansetron HCl (Ondansetron Hcl 4 Mg/2 Ml Vial) 4 mg IVPUSH Q6H [facility] Last Admin: 10/06/21 02:22 Dose: Not Given Documented by: DELROY Non-Admin Reason: Patient Asleep Pantoprazole Sodium (Pantoprazole Sodium 40 Mg/10 Ml Vial) 40 mg IVPUSH BID@0630,1630 [facility] Last Admin: 10/06/21 05:22 Dose: 40 mg Documented by: DELROY Sodium Chloride (0.9 % Sodium Chloride Flush 3 Ml Syringe) 3 ml IVFLUSH QSHIFT [facility] Last Admin: 10/06/21 07:26 Dose: Not Given Documented by: MOLLY Non-Admin Reason: IV Running Labs CBC & Chem 7: 10/06/21 04:43 10/06/21 04:43 Labs: Laboratory Results - last 24 hr 10/05/21 10/06/21 10/06/21 06:00 04:43 04:43 MCV 90.8 MCH 30.5 MCHC 33.6 RDW 11.7 Plt Count 184 MPV 11.3 Immature Gran % (Auto) 0.2 Neut % (Auto) 21.0 L Lymph % (Auto) 69.7 H [place] % (Auto) 6.7 Eos % (Auto) 2.0 Baso % (Auto) 0.4 Lymph # (Auto) 3.8 [place] # (Auto) 0.4 Eos # (Auto) 0.1 Baso # (Auto) 0.0 Abs Immat Gran (auto) 0.01 Absolute Neuts (auto) 1.1 L Absolute Nucleated RBC 0.000 Nucleated RBC % (auto) 0.0 Smear Tech's Comments VERIFIED Anion Gap Estim Creat Clear Calc Estimated GFR Random Glucose Calcium Total Bilirubin 0.8 Direct Bilirubin 0.4 AST 13 ALT 12 Alkaline Phosphatase 40 D Total Protein 6.0 L D Albumin 4.0 D Amylase 44 Lipase 20 TSH 1.50 10/06/21 04:43 MCV MCH MCHC RDW Plt Count MPV Immature Gran % (Auto) Neut % (Auto) Lymph % (Auto) [place] % (Auto) Eos % (Auto) Baso % (Auto) Lymph # (Auto) [place] # (Auto) Eos # (Auto) Baso # (Auto) Abs Immat Gran (auto) Absolute Neuts (auto) Absolute Nucleated RBC Nucleated RBC % (auto) Smear Tech's Comments Anion Gap 12 Estim Creat Clear Calc 139.0 Estimated GFR > 60 Random Glucose 92 Calcium 9.3 Total Bilirubin Direct Bilirubin AST ALT Alkaline Phosphatase Total Protein Albumin Amylase Lipase TSH Microbiology Microbiology Results: Microbiology 10/04/21 19:47 Blood Culture - Preliminary Blood - Venous No growth after 24 hours. 10/04/21 19:47 Blood Culture - Preliminary Blood - Venous No growth after 24 hours. Assessment and Plan (1) Gastroenteritis: Status: Acute (2) Abdominal pain, epigastric: Status: Acute Plan 21 yo M with past medical history of ulcerative colitis and sclerosing cholangitis presents to the hospital with abdominal pain found to have possible gastroenteritis 1.abd pain, nausea, vomiting, diarrhea?- likely 2/2 UC flare vs gastroenteritis esr and crp normal,CT abd negative, C diff and stool cultures needs to be sent when stool available supportive measures , GI recommended PPI, zofran, IV fluids, added hida scan. abd pain seems improving ,but still ca not tolerate diet will need follow? up with GI op to resume his [facility] Gi eval pendin DVT ppx: lovenox Quality Stroke Does the patient have a stroke diagnosis?: No VTE Prior VTE?: No VTE Risk Level:: Medical - moderate - high VTE Device Contraindication: Treatment Not Indicated VTE Drug Contraindication: N/A - Med Ordered
[2021-10-06] MEDS: ondansetron HCL 4 MG/2 ML VIAL IVPUSH ×3 (09:41→19:53)
[2021-10-06] MEDS: oxyCODONE HCl Immed Release 5 MG TABLET 10 MG PO ×2 (16:10→22:34)
[2021-10-06] MEDS: Acetaminophen 325 MG TABLET 650 MG PO ×2 (16:10→22:35)
--- NOTE | 2021-10-06 17:22 | MHC.SHP ---
Pre-Procedural Eval Section A Date of Service: 10/07/21 The patient is an INPATIENT: Yes The History & Physical has been completed within 30 days and I have reviewed it.: Yes Section B Chief Complaint: Gastroenteritis Allergies: Allergies Allergy/AdvReac Type Severity Reaction Status Date / Time amoxicillin [From Augmentin] Allergy Hives Verified 10/04/21 16:38 clavulanic acid Allergy Hives Verified 10/04/21 16:38 [From Augmentin] Plan I have reviewed the history and physical and performed a pertinent physical examination on my patient. No changes have occurred unless specified.
--- NOTE | 2021-10-06 17:24 | P.PNGI_ITS ---
Subjective Subjective Date of Service: 10/06/21 Interval History: He is still having the upper abdominal and right-sided abdominal pain, but thinks it is getting better. Still needing pain meds. Tolerating liquids. Denies N/V. He has had no BM's since admission. He has been afebrile. Critical Care Time (minutes): 0 Physical Exam Verdana 4l Vital Signs: Verdana 4d Verdana 4d Vital Signs: Verdana 4d Verdana 4Bd Last Vital Signs Verdana 4d Multi Township Assessor New 4d [place] [employer] Assessor New 4d Temp 98.6 F 10/06/21 15:46 [place] Assessor New 4d Pulse 65 10/06/21 15:46 Multi Township Assessor New 4d Resp 18 10/06/21 15:46 BP 134/62 10/06/21 15:46 Pulse Ox 98 10/06/21 15:46 BMI result Body Mass Index 23.1 Const: General: cooperative, healthy appearing, comfortable, no acute distress, well developed and alert Eyes: Sclerae: sclerae normal GI: Other: Nondistened, soft, +BS, mild tenderness in the epigastric and RUQ area, no mass/rebound/guarding Objective Data Labs CBC & Chem 7: 10/06/21 04:43 10/06/21 04:43 Labs: Laboratory Results - last 24 hr 10/06/21 10/06/21 10/06/21 04:43 04:43 04:43 WBC 5.4 RBC 4.13 L Hgb 12.6 L Hct 37.5 L MCV 90.8 MCH 30.5 MCHC 33.6 RDW 11.7 Plt Count 184 MPV 11.3 Immature Gran % (Auto) 0.2 Neut % (Auto) 21.0 L Lymph % (Auto) 69.7 H [place] % (Auto) 6.7 Eos % (Auto) 2.0 Baso % (Auto) 0.4 Lymph # (Auto) 3.8 [place] # (Auto) 0.4 Eos # (Auto) 0.1 Baso # (Auto) 0.0 Abs Immat Gran (auto) 0.01 Absolute Neuts (auto) 1.1 L Absolute Nucleated RBC 0.000 Nucleated RBC % (auto) 0.0 Smear Tech's Comments VERIFIED Sodium 141 Potassium 4.1 Chloride 104 Carbon Dioxide 29 Anion Gap 12 BUN 8 L Creatinine 1.06 Estim Creat Clear Calc 139.0 Estimated GFR > 60 Random Glucose 92 Calcium 9.3 Total Bilirubin 0.8 Direct Bilirubin 0.4 AST 13 ALT 12 Alkaline Phosphatase 40 D Total Protein 6.0 L D Albumin 4.0 D Amylase 44 Lipase 20 Microbiology Microbiology Results: Microbiology 10/04/21 19:47 Blood - Venous Blood Culture - Preliminary No growth after 24 hours. 10/04/21 19:47 Blood - Venous Blood Culture - Preliminary No growth after 24 hours. Procedures Date of Service Date of Service: 10/06/21 Progress Note: A&P Assessment and plan (1) Abdominal pain, epigastric: Status: Acute Assessment and Plan: Imp: His presenting symptoms are improving, although still present to some degree and requiring pain medication. Still does not sound like an ulcerative colitis flare. His HIDA scan was normal. This still may speak for some component of PUD/Gastritis. I think it would be best to investigate further with an EGD before discharge for a more definitive diagnosis. Rec: EGD with myself or Dr. Holly 10/07. Full consent has been obtained for this, including risks of bleeding and perforation. Continue PPI. Hold Lovenox for the procedure tomorrow. D/W patient in detail and he is comfortable with this plan. Thanks. Fall Risk Details Current Medications: Current Medications Acetaminophen (Acetaminophen 325 Mg Tablet) 650 mg PO Q6H PRN PRN Reason: Pain, Mild (Pain Scale 1-3) Last Admin: 10/06/21 16:10 Dose: 650 mg Documented by: Docusate Sodium (Docusate Sodium 100 Mg Capsule) 100 mg PO DAILY PRN PRN Reason: Constipation Enoxaparin Sodium (Enoxaparin Sodium 40 Mg/0.4 Ml Syringe) 40 mg SUBCUT Q24H [facility] Last Admin: 10/05/21 23:47 Dose: Not Given Documented by: Hydromorphone HCl (Hydromorphone Hcl 1 Mg/Ml Syringe) 0.5 mg IVPUSH Q4H PRN; Protocol PRN Reason: Pain, Mild (Pain Scale 1-3) Last Admin: 10/06/21 14:30 Dose: 0.5 mg Documented by: Lactated Ringer's (Lr) 1,000 mls @ 100 mls/hr IVCONT .Q10H [facility] Last Admin: 10/06/21 14:20 Dose: Not Given Documented by: Lidocaine (Lidocaine 4 % Patch Adh..Patch) 1 patch TRANSDERMA DAILY [facility]; Protocol Last Admin: 10/06/21 10:07 Dose: Not Given Documented by: Ondansetron HCl (Ondansetron Hcl 4 Mg/2 Ml Vial) 4 mg IVPUSH Q6H [facility] Last Admin: 10/06/21 14:30 Dose: 4 mg Documented by: Oxycodone HCl (Oxycodone Hcl Immed Release 5 Mg Tablet) 10 mg PO Q6H PRN PRN Reason: Pain, Mild (Pain Scale 1-3) Last Admin: 10/06/21 16:10 Dose: 10 mg Documented by: Pantoprazole Sodium (Pantoprazole Sodium 40 Mg/10 Ml Vial) 40 mg IVPUSH BID@0630,1630 [facility] Last Admin: 10/06/21 15:57 Dose: 40 mg Documented by: Sodium Chloride (0.9 % Sodium Chloride Flush 3 Ml Syringe) 3 ml IVFLUSH QSHIFT [facility] Last Admin: 10/06/21 14:25 Dose: Not Given Documented by: Time Spent With Patient Time: Total time spent is greater than 50% in coordination of care (as documented) at patient's floor/unit and/or counseling patient: Time with patient: 25 - 35 minutes Quality Stroke Does the patient have a stroke diagnosis?: No VTE Prior VTE?: No VTE Risk Level:: Medical - moderate - high VTE Device Contraindication: Treatment Not Indicated VTE Drug Contraindication: N/A - Med Ordered
[2021-10-06] MEDS: diphenhydrAMINE HCL 25 MG TABLET PO (18:31)
[2021-10-06] MEDS: Morphine Sulfate 4 MG/ML CARTRIDGE IVPUSH (20:58)
[2021-10-07] VITALS (13 sets, daily range): BP systolic 118–148; BP diastolic 55–80; PULSE 40–104; RESP 16–22; TEMP 36.4–36.9; O2SAT 98–100
[2021-10-07] MEDS: Lactated Ringers 1,000 ML 100 ML IVCONT ×2 (03:16→12:51)
[2021-10-07] MEDS: ondansetron HCL 4 MG/2 ML VIAL IVPUSH ×4 (03:16→20:27)
[2021-10-07] MEDS: HYDROmorphone HCl 1 MG/ML SYRINGE 0.5 MG IVPUSH ×4 (03:18→19:48)
[2021-10-07] MEDS: Pantoprazole Sodium 40 MG/10 ML VIAL IVPUSH ×2 (05:14→17:06)
[2021-10-07 06:19] LABS: Anion Gap 7 (12-20); Blood Urea Nitrogen 5 mg/dL (9-16); Calcium 9.2 mg/dL (8.4-10.2); Carbon Dioxide 33 mmol/L (22-29); Chloride 107 mmol/L (96-108); Creatinine Clr Calc Pharmacy 151.9; Estimated Glomerular Filt Rate > 60; Glucose Random 84 mg/dL (60-115); Potassium 4.3 mmol/L (3.3-5.1); Sodium 143 mmol/L (135-145)
--- NOTE | 2021-10-07 06:32 | MHC.PIE ---
late entry 10/06/212034 p; pt c/o pain 04/16. note prn dilaudid q4 given at 1833, oxy q6 given at 1610 i; dr kim notified; new order morphine 4 mg now e; will cont to monitor
[2021-10-07] MEDS: oxyCODONE HCl Immed Release 5 MG TABLET 10 MG PO ×2 (07:10→12:51)
[2021-10-07] MEDS: diphenhydrAMINE HCL 25 MG TABLET PO (09:46)
[2021-10-07] MEDS: Acetaminophen 325 MG TABLET 650 MG PO (12:54)
--- NOTE | 2021-10-07 13:19 | MHC.CM.PN ---
EMR REVIEWED, PT CONT'S TO C/O SIGNIFICANT PAIN, PT IS DIFFICULT TO REASSESS, PLAN FOR EGD TODAY TO R/O ULCER, CM WILL CONT TO FOLOW D/C NEEDS. ANTIC D/C 1-2 DAYS, D/C PLAN CONT'S TO BE HOME SELF-CARE AND SELF TRANSPORT.
--- NOTE | 2021-10-07 14:24 | P.PNIM_ITS ---
Subjective Subjective Date of Service: 10/07/21 Interval History: Ulcerative colitis Review of Systems still has abd pain has nausea Physical Exam Verdana 4l Vital Signs: Verdana 4d Verdana 4d Vital Signs: Verdana 4d Verdana 4Bd Last Vital Signs Verdana 4d Risk [employer] Compliance Analytics Director New 4d Fatimah New 4d Temp 98.5 F 10/07/21 11:02 Risk And Compliance Analytics Director New 4d Pulse 43 L 10/07/21 11:02 Risk And Compliance Analytics Director New 4d Resp 18 10/07/21 11:02 BP 122/56 L 10/07/21 07:26 Pulse Ox 100 10/07/21 11:02 BMI result Body Mass Index 23.1 ? Appearance: Alert.? Oriented X3.? not in distress.? Eyes: Pupils equal, round and reactive to light.? Sclera nonicteric.? ENT: Pharynx normal.? Moist mucous membranes. cvs: rrr, [id number] , no murmur res: clear to auscultation ,no rhonchii or wheezing abd: no rebound or guarding ,abd pain improving in epigastric and still tense , bs present. ext pulses present , no cyanosis ,Gait well balanced well coordinated. neuro: axo3 , nonfocal. Objective Data Active Medications Acetaminophen (Acetaminophen 325 Mg Tablet) 650 mg PO Q6H PRN PRN Reason: Pain, Mild (Pain Scale 1-3) Last Admin: 10/07/21 12:54 Dose: 650 mg Documented by: PAYTON Diphenhydramine HCl (Diphenhydramine Hcl 25 Mg Tablet) 25 mg PO Q6H PRN PRN Reason: Itching Last Admin: 10/07/21 09:46 Dose: 25 mg Documented by: PAYTON Docusate Sodium (Docusate Sodium 100 Mg Capsule) 100 mg PO DAILY PRN PRN Reason: Constipation Enoxaparin Sodium (Enoxaparin Sodium 40 Mg/0.4 Ml Syringe) 40 mg SUBCUT Q24H [facility] Last Admin: 10/05/21 23:47 Dose: Not Given Documented by: DELROY Non-Admin Reason: Patient Refused Hydromorphone HCl (Hydromorphone Hcl 1 Mg/Ml Syringe) 0.5 mg IVPUSH Q4H PRN; Protocol PRN Reason: Pain, Mild (Pain Scale 1-3) Last Admin: 10/07/21 14:05 Dose: 0.5 mg Documented by: PAYTON Lactated Ringer's (Lr) 1,000 mls @ 100 mls/hr IVCONT .Q10H [facility] Last Admin: 10/07/21 12:51 Dose: 100 mls/hr Documented by: PAYTON Lidocaine (Lidocaine 4 % Patch Adh..Patch) 1 patch TRANSDERMA DAILY [facility]; Protocol Last Admin: 10/07/21 07:10 Dose: Not Given Documented by: KAMRAN Non-Admin Reason: Patient Refused Ondansetron HCl (Ondansetron Hcl 4 Mg/2 Ml Vial) 4 mg IVPUSH Q6H [facility] Last Admin: 10/07/21 12:51 Dose: 4 mg Documented by: PAYTON Oxycodone HCl (Oxycodone Hcl Immed Release 5 Mg Tablet) 10 mg PO Q6H PRN PRN Reason: Pain, Mild (Pain Scale 1-3) Last Admin: 10/07/21 12:51 Dose: 10 mg Documented by: PAYTON Pantoprazole Sodium (Pantoprazole Sodium 40 Mg/10 Ml Vial) 40 mg IVPUSH BID@0630,1630 [facility] Last Admin: 10/07/21 05:14 Dose: 40 mg Documented by: DAVIN Sodium Chloride (0.9 % Sodium Chloride Flush 3 Ml Syringe) 3 ml IVFLUSH QSHIFT [facility] Last Admin: 10/07/21 07:06 Dose: Not Given Documented by: KAMRAN Non-Admin Reason: IV Running Labs CBC & Chem 7: 10/06/21 04:43 10/07/21 05:15 Labs: Laboratory Results - last 24 hr 10/07/21 05:15 Anion Gap 7 L Estim Creat Clear Calc 151.9 Estimated GFR > 60 Random Glucose 84 Calcium 9.2 Microbiology Microbiology Results: Microbiology 10/04/21 19:47 Blood Culture - Preliminary Blood - Venous No growth after 48 hours. 10/04/21 19:47 Blood Culture - Preliminary Blood - Venous No growth after 48 hours. Assessment and Plan Plan 21 yo M with past medical history of ulcerative colitis and sclerosing cholangit is presents to the hospital with abdominal pain found to have possible gastroenteritis 1.abd pain, nausea, vomiting, diarrhea?- likely 2/2 UC flare vs gastroenteritis esr and crp normal,CT abd negative, C diff and stool cultures needs to be sent when stool available supportive measures , GI recommended PPI, zofran, IV fluids, added hida scan. abd pain seems improving ,but still can not tolerate diet GI evaluation noted-HIDA scan was done which seems to be normal, patient is going for EGD today. DVT ppx: lovenox Quality Stroke Does the patient have a stroke diagnosis?: No VTE Prior VTE?: No VTE Risk Level:: Medical - moderate - high VTE Device Contraindication: Treatment Not Indicated VTE Drug Contraindication: N/A - Med Ordered
--- NOTE | 2021-10-07 16:19 | PC.NURSE ---
Patient reports he has history of waking up from anesthesia and becoming anxious, agitated, trying to leave. Reported to [facility] RN and cap and hat production supervisor. Patient requesting friend be present after surgery. Per cap and hat production supervisor would not be allowed.
--- NOTE | 2021-10-07 18:11 | P.CONAN_ITS ---
[facility] Active Problems Active Problems: All Active Problems (Updated 10/05/21 @ 06:59 by Rukhsana Perrin MD) Gastroenteritis (Acute) Abdominal pain, epigastric (Acute) Vomiting (Acute) Diarrhea (Acute) Abnormal weight loss (Acute) Past Medical History Medical History (Updated 10/05/21 @ 06:59 by Rukhsana Perrin MD) Sclerosing cholangitis Ulcerative colitis Family History Family history of problems with anesthesia: No Surgical History Surgical History (Updated 10/05/21 @ 06:59 by Rukhsana Perrin MD) No pertinent past surgical history History of Problems with Anesthesia: No Social History Social History Household Members: Significant Other and Friend(s) Housing: Apartment Alcohol intake: current Alcohol intake frequency: a few times a month Patient Tobacco Use Status: Never used Tobacco Use of substances other than those prescribed or required for medical reasons: No Currently Displaying Signs/Symptoms of Drug Intoxication Withdrawal: No Have you been hit, kicked, punched, or otherwise hurt by someone within the past year? If so, by whom?: No Do you feel safe in your current relationship?: Yes Is there a partner from a previous relationship who is making you feel unsafe now?: No Are you made to feel afraid or neglected: No Advance Directives: No Advance Directives Information Provided: Yes Do you have thoughts of harming others: None Do you have a plan to hurt others: No Plan Recently lost weight without trying: No Eating poorly because of decreased appetite: No Nutrition Risks: No Nutritional Risk Poor oral hygiene: No service: No Current occupational status: employed Meds Allergies Allergy/AdvReac Type Severity Reaction Status Date / Time amoxicillin [From Allergy Hives Verified 10/04/21 16:38 Augmentin] clavulanic acid Allergy Hives Verified 10/04/21 16:38 [From Augmentin] Active Medications: Current Medications Acetaminophen (Acetaminophen 325 Mg Tablet) 650 mg PO Q6H PRN PRN Reason: Pain, Mild (Pain Scale 1-3) Last Admin: 10/07/21 12:54 Dose: 650 mg Documented by: Diphenhydramine HCl (Diphenhydramine Hcl 25 Mg Tablet) 25 mg PO Q6H PRN PRN Reason: Itching Last Admin: 10/07/21 09:46 Dose: 25 mg Documented by: Docusate Sodium (Docusate Sodium 100 Mg Capsule) 100 mg PO DAILY PRN PRN Reason: Constipation Enoxaparin Sodium (Enoxaparin Sodium 40 Mg/0.4 Ml Syringe) 40 mg SUBCUT Q24H [facility] Last Admin: 10/05/21 23:47 Dose: Not Given Documented by: Hydromorphone HCl (Hydromorphone Hcl 1 Mg/Ml Syringe) 0.5 mg IVPUSH Q4H PRN; Protocol PRN Reason: Pain, Mild (Pain Scale 1-3) Last Admin: 10/07/21 14:05 Dose: 0.5 mg Documented by: Lactated Ringer's (Lr) 1,000 mls @ 100 mls/hr IVCONT .Q10H [facility] Last Admin: 10/07/21 12:51 Dose: 100 mls/hr Documented by: Lidocaine (Lidocaine 4 % Patch Adh..Patch) 1 patch TRANSDERMA DAILY [facility]; Protocol Last Admin: 10/07/21 07:10 Dose: Not Given Documented by: Ondansetron HCl (Ondansetron Hcl 4 Mg/2 Ml Vial) 4 mg IVPUSH Q6H [facility] Last Admin: 10/07/21 12:51 Dose: 4 mg Documented by: Oxycodone HCl (Oxycodone Hcl Immed Release 5 Mg Tablet) 10 mg PO Q6H PRN PRN Reason: Pain, Mild (Pain Scale 1-3) Last Admin: 10/07/21 12:51 Dose: 10 mg Documented by: Pantoprazole Sodium (Pantoprazole Sodium 40 Mg/10 Ml Vial) 40 mg IVPUSH BID@0630,1630 [facility] Last Admin: 10/07/21 17:06 Dose: 40 mg Documented by: Sodium Chloride (0.9 % Sodium Chloride Flush 3 Ml Syringe) 3 ml IVFLUSH QSHIFT [facility] Last Admin: 10/07/21 16:47 Dose: Not Given Documented by: Home Medications Medication Instructions Recorded Confirmed Last Taken Type adalimumab 40 40 mg SUBCUT 10/05/21 10/05/21 Unknown History mg/0.8 mL QWEEK subcutaneous syringe kit (Humira) ursodiol 300 mg 300 mg PO BID 10/05/21 10/05/21 Unknown History capsule Exam Exam Date and Time: October 07, [id number] Height,Weight and Vital Signs: Height 6 ft 5 in Weight 88.451 kg Last Vital Signs Temp 97.8 F 10/07/21 18:09 Pulse 50 10/07/21 18:09 Resp 18 10/07/21 18:09 BP 148/80 H 10/07/21 18:09 Pulse Ox 100 10/07/21 18:09 Pertinent Lab Results Pertinent Lab Results: Laboratory Tests 10/04/21 10/04/21 10/04/21 19:46 19:47 19:47 WBC 7.3 RBC 5.02 Hgb 15.7 Hct 44.5 MCV 88.6 MCH 31.3 MCHC 35.3 RDW 11.8 Plt Count 235 MPV 10.7 Immature Gran % (Auto) 0.1 Neut % (Auto) 45.0 Lymph % (Auto) 49.7 H Walker % (Auto) 4.7 Eos % (Auto) 0.1 Baso % (Auto) 0.4 Lymph # (Auto) 3.6 Walker # (Auto) 0.3 Eos # (Auto) 0.0 Baso # (Auto) 0.0 Abs Immat Gran (auto) 0.01 Absolute Neuts (auto) 3.3 Absolute Nucleated RBC 0.000 Nucleated RBC % (auto) 0.0 Smear Tech's Comments ESR 2 Sodium Potassium Chloride Carbon Dioxide Anion Gap BUN Creatinine Estim Creat Clear Calc Estimated GFR Random Glucose Lactic Acid 1.0 Calcium Total Bilirubin Direct Bilirubin AST ALT Alkaline Phosphatase C-Reactive Protein Total Protein Albumin Amylase Lipase TSH COVID-19 (ROBIN) COVID-19 Clin Com 10/04/21 10/04/21 10/05/21 19:47 19:48 06:00 WBC 6.3 RBC 4.15 L Hgb 12.8 L Hct 37.3 L MCV 89.9 MCH 30.8 MCHC 34.3 RDW 11.7 Plt Count 194 MPV 10.9 Immature Gran % (Auto) 0.2 Neut % (Auto) 22.9 L Lymph % (Auto) 70.0 H Walker % (Auto) 5.6 Eos % (Auto) 1.0 Baso % (Auto) 0.3 Lymph # (Auto) 4.4 Walker # (Auto) 0.4 Eos # (Auto) 0.1 Baso # (Auto) 0.0 Abs Immat Gran (auto) 0.01 Absolute Neuts (auto) 1.5 L Absolute Nucleated RBC 0.000 Nucleated RBC % (auto) 0.0 Smear Tech's Comments VERIFIED ESR Sodium 141 Potassium 4.0 Chloride 102 Carbon Dioxide 27 Anion Gap 16 BUN 12 Creatinine 1.10 Estim Creat Clear Calc 134.0 Estimated GFR > 60 Random Glucose 91 Lactic Acid Calcium 10.8 H Total Bilirubin 0.9 Direct Bilirubin AST 20 ALT 13 Alkaline Phosphatase 59 C-Reactive Protein < 0.02 Total Protein 9.0 H Albumin 5.5 H Amylase Lipase 13 TSH COVID-19 (ROBIN) Negative COVID-[facility] Clin Com See Note 10/05/21 10/06/21 10/06/21 06:00 04:43 04:43 WBC 5.4 RBC 4.13 L Hgb 12.6 L Hct 37.5 L MCV 90.8 MCH 30.5 MCHC 33.6 RDW 11.7 Plt Count 184 MPV 11.3 Immature Gran % (Auto) 0.2 Neut % (Auto) 21.0 L Lymph % (Auto) 69.7 H Walker % (Auto) 6.7 Eos % (Auto) 2.0 Baso % (Auto) 0.4 Lymph # (Auto) 3.8 Walker # (Auto) 0.4 Eos # (Auto) 0.1 Baso # (Auto) 0.0 Abs Immat Gran (auto) 0.01 Absolute Neuts (auto) 1.1 L Absolute Nucleated RBC 0.000 Nucleated RBC % (auto) 0.0 Smear Tech's Comments VERIFIED ESR Sodium 141 Potassium 4.4 Chloride 106 Carbon Dioxide 30 H Anion Gap 9 L BUN 12 Creatinine 1.03 Estim Creat Clear Calc 143.1 Estimated GFR > 60 Random Glucose 80 Lactic Acid Calcium 9.5 D Total Bilirubin 0.8 Direct Bilirubin 0.4 AST 13 ALT 12 Alkaline Phosphatase 40 D C-Reactive Protein Total Protein 6.0 L D Albumin 4.0 D Amylase 44 Lipase 20 TSH 1.50 COVID-19 (ROBIN) [employer] 10/06/21 10/07/21 04:43 05:15 WBC RBC Hgb Hct MCV MCH MCHC RDW Plt Count MPV Immature Gran % (Auto) Neut % (Auto) Lymph % (Auto) Walker % (Auto) Eos % (Auto) Baso % (Auto) Lymph # (Auto) Walker # (Auto) Eos # (Auto) Baso # (Auto) Abs Immat Gran (auto) Absolute Neuts (auto) Absolute Nucleated RBC Nucleated RBC % (auto) Smear Tech's Comments ESR Sodium 141 143 Potassium 4.1 4.3 Chloride 104 107 Carbon Dioxide 29 33 H Anion Gap 12 7 L BUN 8 L 5 L Creatinine 1.06 0.97 Estim Creat Clear Calc 139.0 151.9 Estimated GFR > 60 > 60 Random Glucose 92 84 Lactic Acid Calcium 9.3 9.2 Total Bilirubin Direct Bilirubin AST ALT Alkaline Phosphatase C-Reactive Protein Total Protein Albumin Amylase Lipase TSH COVID-19 (ROBIN) COVID-19 Clin Com Airway Mallampati Class: II TM Dist: >3cm Neck ROM: Full Loose/Missing/Broken Teeth: No Heart: RRR Lungs: CTA Assessment and Plan Assessment Anesthesia Assessment: Anesthesia Plan Discussed Final Anesthetic Review Family History of Problems with Anesthesia: No History of Problems with Anesthesia: No NPO: Yes ASA Class: III Final Preanesthetic Review: No Changes in Pt Med Stat, Meds/Allgs Chart Reviewed, Consent Obtained/Reviewed and Anes Risks/Benef Reviewed Patient Risk: Intermediate Procedure Risk: Low Anesthetic Plan Anesthetic Plan: MAC: Disposition: Standard PACU
--- NOTE | 2021-10-07 18:13 | P.CONAN_ITS ---
[facility] Active Problems Active Problems: All Active Problems (Updated 10/05/21 @ 06:59 by Rukhsana Perrin MD) Gastroenteritis (Acute) Abdominal pain, epigastric (Acute) Vomiting (Acute) Diarrhea (Acute) Abnormal weight loss (Acute) Past Medical History Medical History (Updated 10/05/21 @ 06:59 by Rukhsana Perrin MD) Sclerosing cholangitis Ulcerative colitis Family History Family history of problems with anesthesia: No Surgical History Surgical History (Updated 10/05/21 @ 06:59 by Rukhsana Perrin MD) No pertinent past surgical history History of Problems with Anesthesia: No Social History Social History Household Members: Significant Other and Friend(s) Housing: Apartment Alcohol intake: current Alcohol intake frequency: a few times a month Patient Tobacco Use Status: Never used Tobacco Use of substances other than those prescribed or required for medical reasons: No Currently Displaying Signs/Symptoms of Drug Intoxication Withdrawal: No Have you been hit, kicked, punched, or otherwise hurt by someone within the past year? If so, by whom?: No Do you feel safe in your current relationship?: Yes Is there a partner from a previous relationship who is making you feel unsafe now?: No Are you made to feel afraid or neglected: No Advance Directives: No Advance Directives Information Provided: Yes Do you have thoughts of harming others: None Do you have a plan to hurt others: No Plan Recently lost weight without trying: No Eating poorly because of decreased appetite: No Nutrition Risks: No Nutritional Risk Poor oral hygiene: No service: No Current occupational status: employed Meds Allergies Allergy/AdvReac Type Severity Reaction Status Date / Time amoxicillin [From Allergy Hives Verified 10/04/21 16:38 Augmentin] clavulanic acid Allergy Hives Verified 10/04/21 16:38 [From Augmentin] Active Medications: Current Medications Acetaminophen (Acetaminophen 325 Mg Tablet) 650 mg PO Q6H PRN PRN Reason: Pain, Mild (Pain Scale 1-3) Last Admin: 10/07/21 12:54 Dose: 650 mg Documented by: Diphenhydramine HCl (Diphenhydramine Hcl 25 Mg Tablet) 25 mg PO Q6H PRN PRN Reason: Itching Last Admin: 10/07/21 09:46 Dose: 25 mg Documented by: Docusate Sodium (Docusate Sodium 100 Mg Capsule) 100 mg PO DAILY PRN PRN Reason: Constipation Enoxaparin Sodium (Enoxaparin Sodium 40 Mg/0.4 Ml Syringe) 40 mg SUBCUT Q24H [facility] Last Admin: 10/05/21 23:47 Dose: Not Given Documented by: Hydromorphone HCl (Hydromorphone Hcl 1 Mg/Ml Syringe) 0.5 mg IVPUSH Q4H PRN; Protocol PRN Reason: Pain, Mild (Pain Scale 1-3) Last Admin: 10/07/21 14:05 Dose: 0.5 mg Documented by: Lactated Ringer's (Lr) 1,000 mls @ 100 mls/hr IVCONT .Q10H [facility] Last Admin: 10/07/21 12:51 Dose: 100 mls/hr Documented by: Lidocaine (Lidocaine 4 % Patch Adh..Patch) 1 patch TRANSDERMA DAILY [facility]; Protocol Last Admin: 10/07/21 07:10 Dose: Not Given Documented by: Ondansetron HCl (Ondansetron Hcl 4 Mg/2 Ml Vial) 4 mg IVPUSH Q6H [facility] Last Admin: 10/07/21 12:51 Dose: 4 mg Documented by: Oxycodone HCl (Oxycodone Hcl Immed Release 5 Mg Tablet) 10 mg PO Q6H PRN PRN Reason: Pain, Mild (Pain Scale 1-3) Last Admin: 10/07/21 12:51 Dose: 10 mg Documented by: Pantoprazole Sodium (Pantoprazole Sodium 40 Mg/10 Ml Vial) 40 mg IVPUSH BID@0630,1630 [facility] Last Admin: 10/07/21 17:06 Dose: 40 mg Documented by: Sodium Chloride (0.9 % Sodium Chloride Flush 3 Ml Syringe) 3 ml IVFLUSH QSHIFT [facility] Last Admin: 10/07/21 16:47 Dose: Not Given Documented by: Home Medications Medication Instructions Recorded Confirmed Last Taken Type adalimumab 40 40 mg SUBCUT 10/05/21 10/05/21 Unknown History mg/0.8 mL QWEEK subcutaneous syringe kit (Humira) ursodiol 300 mg 300 mg PO BID 10/05/21 10/05/21 Unknown History capsule Exam Exam Date and Time: October 07, [id number] Height,Weight and Vital Signs: Height 6 ft 5 in Weight 88.451 kg Last Vital Signs Temp 97.8 F 10/07/21 18:09 Pulse 50 10/07/21 18:09 Resp 18 10/07/21 18:09 BP 148/80 H 10/07/21 18:09 Pulse Ox 100 10/07/21 18:09 Pertinent Lab Results Pertinent Lab Results: Laboratory Tests 10/04/21 10/04/21 10/04/21 19:46 19:47 19:47 WBC 7.3 RBC 5.02 Hgb 15.7 Hct 44.5 MCV 88.6 MCH 31.3 MCHC 35.3 RDW 11.8 Plt Count 235 MPV 10.7 Immature Gran % (Auto) 0.1 Neut % (Auto) 45.0 Lymph % (Auto) 49.7 H Bennett % (Auto) 4.7 Eos % (Auto) 0.1 Baso % (Auto) 0.4 Lymph # (Auto) 3.6 Bennett # (Auto) 0.3 Eos # (Auto) 0.0 Baso # (Auto) 0.0 Abs Immat Gran (auto) 0.01 Absolute Neuts (auto) 3.3 Absolute Nucleated RBC 0.000 Nucleated RBC % (auto) 0.0 Smear Tech's Comments ESR 2 Sodium Potassium Chloride Carbon Dioxide Anion Gap BUN Creatinine Estim Creat Clear Calc Estimated GFR Random Glucose Lactic Acid 1.0 Calcium Total Bilirubin Direct Bilirubin AST ALT Alkaline Phosphatase C-Reactive Protein Total Protein Albumin Amylase Lipase TSH COVID-19 (ROBIN) COVID-19 Clin Com 10/04/21 10/04/21 10/05/21 19:47 19:48 06:00 WBC 6.3 RBC 4.15 L Hgb 12.8 L Hct 37.3 L MCV 89.9 MCH 30.8 MCHC 34.3 RDW 11.7 Plt Count 194 MPV 10.9 Immature Gran % (Auto) 0.2 Neut % (Auto) 22.9 L Lymph % (Auto) 70.0 H Bennett % (Auto) 5.6 Eos % (Auto) 1.0 Baso % (Auto) 0.3 Lymph # (Auto) 4.4 Bennett # (Auto) 0.4 Eos # (Auto) 0.1 Baso # (Auto) 0.0 Abs Immat Gran (auto) 0.01 Absolute Neuts (auto) 1.5 L Absolute Nucleated RBC 0.000 Nucleated RBC % (auto) 0.0 Smear Tech's Comments VERIFIED ESR Sodium 141 Potassium 4.0 Chloride 102 Carbon Dioxide 27 Anion Gap 16 BUN 12 Creatinine 1.10 Estim Creat Clear Calc 134.0 Estimated GFR > 60 Random Glucose 91 Lactic Acid Calcium 10.8 H Total Bilirubin 0.9 Direct Bilirubin AST 20 ALT 13 Alkaline Phosphatase 59 C-Reactive Protein < 0.02 Total Protein 9.0 H Albumin 5.5 H Amylase Lipase 13 TSH COVID-19 (ROBIN) Negative COVID-[employer] Clin Com See Note 10/05/21 10/06/21 10/06/21 06:00 04:43 04:43 WBC 5.4 RBC 4.13 L Hgb 12.6 L Hct 37.5 L MCV 90.8 MCH 30.5 MCHC 33.6 RDW 11.7 Plt Count 184 MPV 11.3 Immature Gran % (Auto) 0.2 Neut % (Auto) 21.0 L Lymph % (Auto) 69.7 H Bennett % (Auto) 6.7 Eos % (Auto) 2.0 Baso % (Auto) 0.4 Lymph # (Auto) 3.8 Bennett # (Auto) 0.4 Eos # (Auto) 0.1 Baso # (Auto) 0.0 Abs Immat Gran (auto) 0.01 Absolute Neuts (auto) 1.1 L Absolute Nucleated RBC 0.000 Nucleated RBC % (auto) 0.0 Smear Tech's Comments VERIFIED ESR Sodium 141 Potassium 4.4 Chloride 106 Carbon Dioxide 30 H Anion Gap 9 L BUN 12 Creatinine 1.03 Estim Creat Clear Calc 143.1 Estimated GFR > 60 Random Glucose 80 Lactic Acid Calcium 9.5 D Total Bilirubin 0.8 Direct Bilirubin 0.4 AST 13 ALT 12 Alkaline Phosphatase 40 D C-Reactive Protein Total Protein 6.0 L D Albumin 4.0 D Amylase 44 Lipase 20 TSH 1.50 COVID-19 (ROBIN) [employer] 10/06/21 10/07/21 04:43 05:15 WBC RBC Hgb Hct MCV MCH MCHC RDW Plt Count MPV Immature Gran % (Auto) Neut % (Auto) Lymph % (Auto) Bennett % (Auto) Eos % (Auto) Baso % (Auto) Lymph # (Auto) Bennett # (Auto) Eos # (Auto) Baso # (Auto) Abs Immat Gran (auto) Absolute Neuts (auto) Absolute Nucleated RBC Nucleated RBC % (auto) Smear Tech's Comments ESR Sodium 141 143 Potassium 4.1 4.3 Chloride 104 107 Carbon Dioxide 29 33 H Anion Gap 12 7 L BUN 8 L 5 L Creatinine 1.06 0.97 Estim Creat Clear Calc 139.0 151.9 Estimated GFR > 60 > 60 Random Glucose 92 84 Lactic Acid Calcium 9.3 9.2 Total Bilirubin Direct Bilirubin AST ALT Alkaline Phosphatase C-Reactive Protein Total Protein Albumin Amylase Lipase TSH COVID-19 (ROBIN) COVID-19 Clin Com Airway Mallampati Class: II TM Dist: >3cm Loose/Missing/Broken Teeth: No Heart: RRR Lungs: CTA Assessment and Plan Assessment Anesthesia Assessment: Anesthesia Plan Discussed and Chart Reviewed Final Anesthetic Review Family History of Problems with Anesthesia: No History of Problems with Anesthesia: No ASA Class: III Final Preanesthetic Review: No Changes in Pt Med Stat Patient Risk: Intermediate Procedure Risk: Low Anesthetic Plan Anesthetic Plan: MAC: Disposition: Standard PACU
--- NOTE | 2021-10-07 18:58 | P.BOP_ITS ---
Brief Operative Note Date of Service: 10/07/21 Pre-op diagnosis: Abdominal pain Post-op diagnosis: other (Same, normal EGD) Procedure: EGD with biopsies Surgeon: Walt Fernández Anesthesia: MAC Was an Transit Proof Machine Operator used for this Procedure?: No Estimated blood loss (mL): 2.0 Pathology: other (A. Gastric antrum) Condition: stable Disposition: PACU
--- NOTE | 2021-10-07 19:00 | PM.EVENT ---
Event Note Date of Service: 10/07/21 Event Note: GI-EGD-Full note dictated Findings: 1. Normal upper endoscopy. Gastric antrum biopsied x 3. Rec: Advance diet, observe, D/C 2 if stable. His symptoms may have been from a gastroenteritis. D/W patient and his mother in detail. Thanks
[2021-10-08] MEDS: 0.9 % Sodium Chloride Flush 3 ML SYRINGE IVFLUSH ×2 (00:05→08:44)
[2021-10-08] MEDS: HYDROmorphone HCl 1 MG/ML SYRINGE 0.5 MG IVPUSH ×2 (00:06→05:33)
--- NOTE | 2021-10-08 02:30 | OP_ITS ---
SURGEON: Walt Fernández MD INDICATIONS: The patient presents for evaluation of abdominal pain. Full consent obtained from him for this, including risks of bleeding and perforation. PREOPERATIVE DIAGNOSIS: POSTOPERATIVE DIAGNOSIS: PROCEDURE PERFORMED: ESTIMATED BLOOD LOSS: COMPLICATIONS: ANESTHESIA: Monitored anesthesia care. ASSISTANTS: SPECIMENS: PROCEDURE: Esophagogastroduodenoscopy with biopsies. PREOPERATIVE DIAGNOSES: Abdominal pain. POSTOPERATIVE DIAGNOSES: Abdominal pain, normal upper endoscopy. DESCRIPTION OF PROCEDURE: Patient was placed in the left lateral decubitus position. The Olympus video gastroscope was passed in the posterior oropharynx and upper esophagus under direct vision. Scope was passed slowly into the distal esophagus. The gastroesophageal junction appeared normal at 38 cm. There was no sign of any esophagitis. Scope was entered into the stomach. The scope was advanced to pylorus and the duodenum was cannulated to the descending portion. The duodenum including the bulb appeared normal without mass or ulceration. There was no evidence of any inflammatory changes within the duodenum. The scope withdrawn back in the stomach. The gastric antrum and body appeared normal with good peristalsis. The scope was retroflexed visualizing the proximal stomach carefully, which appeared normal, without any sign of mass or ulceration. The scope was straightened. Biopsies were obtained from the gastric antrum. The scope was withdrawn back to the esophagus. The esophageal mucosa appeared normal. The scope was withdrawn to the patient. He tolerated the procedure well and was returned to recovery area in stable condition. IMPRESSION: Normal upper endoscopy. PLAN: At this point, the patient does seem to be improving and feels much better than when he first got here 3 days ago. He is hungry and his diet will be advanced tonight. If stable, he could be discharged by tomorrow morning. Instructions have been given that he should resume his Humira as soon as possible and to follow up with his GI physician in [place]. This has been discussed with the patient and his mother, by telephone, this evening in detail. MD KANDY Camarena/DEDRA / [phone] MTDD
[2021-10-08] MEDS: ondansetron HCL 4 MG/2 ML VIAL IVPUSH ×2 (02:42→08:44)
[2021-10-08 04:00] VITALS: BP 148/63; PULSE 59; RESP 18; TEMP 36.1; O2SAT 99
[2021-10-08 06:10] LABS: Hemoglobin 12.8 g/dl (14.0-18.0); Mean Corpuscular HGB Conc 33.7 g/dl (31.0-36.0); Mean Corpuscular Hemoglobin 30.5 pg (27.0-33.0); Mean Corpuscular Volume 90.7 fL (80.0-98.0); Mean Platelet Volume 11.4 fL (9.4-12.4); Platelet Count 194 X10*3/uL (160-400); Red Blood Count 4.19 X10*6/uL (4.60-5.80); Red Cell Distribution Width 11.6 % (11.0-16.0)
[2021-10-08 06:14] LABS: Anion Gap 8 (12-20); Blood Urea Nitrogen 7 mg/dL (9-16); Calcium 9.1 mg/dL (8.4-10.2); Carbon Dioxide 32 mmol/L (22-29); Chloride 105 mmol/L (96-108); Creatinine Clr Calc Pharmacy 129.3; Estimated Glomerular Filt Rate > 60; Potassium 4.4 mmol/L (3.3-5.1); Sodium 141 mmol/L (135-145)
[2021-10-08 06:42] LABS: Glucose Random 51 mg/dL (60-115)
--- NOTE | 2021-10-08 06:53 | PC.NURSE ---
random glucose level included in am lab panel came back as 51 per tiger text from lab, pt with no symptoms, prefers treat with po juice, jello. tolerated well and will recheck. hospitalist on duty notified, am rn alerted
[2021-10-08 07:08] VITALS: BP 102/45; PULSE 39; RESP 20; TEMP 36.3; O2SAT 100
--- NOTE | 2021-10-08 07:24 | PC.NURSE ---
repeat poc blood sugar to follow up after lab random glucose of 51. treated po, fingerstick at 0722+ 101
[2021-10-08 07:28] LABS: Glucose, Whole Blood 102 mg/dL (60-115)
--- NOTE | 2021-10-08 11:27 | P.DS_ITS ---
DS: Providers Provider Date of Service: 10/08/21 Date of admission: 10/04/21 22:08 Primary care physician: Unknown Physician Consults: 10/05/21 06:53 Consult to Gastroenterology Routine Consulting Provider: Walt Fernández Reason for consultation: diarrhea,vomiting hx of UC Has provider been notified: Yes DS: Diagnosis Discharge Diagnosis (1) Abdominal pain, epigastric: Status: Acute (2) Gastroenteritis: Status: Acute DS: Summary Hospital Course Hospital Course: Admission note HPI This is a 21-year-old male with past medical history of ulcerative colitis and sclerosing cholangitis who presents to the hospital with complaints of abdominal pain, nausea and vomiting,as well as diarrhea for the past 1 week that has been progressively getting worse? Pain is around the epigastric area, constant, nonradiating, 8/10, no relieving factors. His had about 6 episodes of n/v daily, as well as non-bloody dirrhea 3-4 episodes each day. .? Has not been able to keep anything down for the past 2 days and has lost significant weight over the last week- reports about 15 lbs. of note The patient is treated with Humira once a week.? He states that he was on Ursodiol for elevated bilirubins.? He states that he had? ulcers in his mouth with increased epigastric pain 2 months prior and stop the Ursodiol which seemed improved the symptoms.? He also was concerned that his pain was caused by his Humira therefore he stop this 3 weeks ago as well. - pt confirmed this information on my exam On arrival to the ED patient hemodynamically stable with no significant abnormal vitals Labs reviewed are unremarkable ABD/pelvic CT showed no acute intra-abdominal process. Hospital course The patient was admitted and started treatment of IV fluid, ppi and nausea me dication with fair response as his symptoms started to improved. HIDA scan was done showing no evidence of gallbladder disease. CT scan was in the emergency and negative for any colitis. He was evaluated by Gastroenterology who did upper endoscopy that did not show any significant abnormality. Recommendations to advanced diet as tolerated and continue with the nausea medication with a plan to follow-up with his terrazzo polisher in [place]. 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 Operator New 4d Bullet Assembly Press Setter Operator New 4d Temp 97.3 F 10/08/21 07:08 Bullet Assembly Press Setter Operator New 4d Pulse 39 L 10/08/21 07:08 Bullet Assembly Press Setter Operator New 4d Resp 20 10/08/21 07:08 BP 102/45 L 10/08/21 07:08 Pulse Ox 100 10/08/21 07:08 BMI result Body Mass Index 23.1 Const: Other: Constitutional : Alert, oriented, not in distress Neck : Normal inspection, Supple Cardiovascular : RRR, S1 S2, no lower extremity edema Respiratory : Good bilateral air entry, no crackles, wheezes or rhonchi Gastrointestinal: soft, lax, Normal bowel sounds, Non tender Skin : Warm, Dry Neurological : Alert & oriented x3, No focal deficit DS: Data Data Completed and Pending Pending studies at discharge: Pending at discharge 10/07/21 18:48 Surgical [PTH] Routine Labs on day of discharge: Laboratory Results - last 24 hr 10/08/21 10/08/21 10/08/21 05:25 05:25 07:22 WBC 5.0 RBC 4.19 L Hgb 12.8 L Hct 38.0 L MCV 90.7 MCH 30.5 MCHC 33.7 RDW 11.6 Plt Count 194 MPV 11.4 Absolute Nucleated RBC 0.000 Nucleated RBC % (auto) 0.0 Sodium 141 Potassium 4.4 Chloride 105 Carbon Dioxide 32 H Anion Gap 8 L BUN 7 L Creatinine 1.14 Estim Creat Clear Calc 129.3 Estimated GFR > 60 POC Glucose 102 Random Glucose 51 L* Calcium 9.1 Preliminary micro results at discharge 10/04/21 19:47 Blood Culture - Preliminary Blood - Venous No growth after 48 hours. 10/04/21 19:47 Blood Culture - Preliminary Blood - Venous No growth after [address] scan - abdomen: Radiologist's impression: ITS Impressions Abdomen/Pelvis CT 10/04/21 20:59 IMPRESSION: No acute intra-abdominal process seen. Fleischner guidelines were followed. Abdomen Ultrasound 10/04/21 22:30 IMPRESSION: Diffuse echogenic debris seen gallbladder without any echogenic stones or wall thickening. No pericholecystic fluid collection. Hepatobiliary Scan Nuclear Medicine 10/06/21 13:55 IMPRESSION: Normal HIDA scan Patent cystic duct and CBD. Discharge Plan Discharge Patient Disposition: Home, Self-Care Discharge Diagnosis: Gastroenteritis Referrals: Physician,Unknown J [Primary Care Provider] - 1 Week Discharge Medications: New ondansetron 4 mg tablet,disintegrating 4 mg PO Q8H PRN (Reason: nausea and vomiting) Qty: 14 0RF Continued Humira 40 mg/0.8 mL Syringe Kit 40 mg SUBCUT QWEEK 0RF ursodiol 300 mg Capsule 300 mg PO BID 0RF Discharge Orders: Discharge Order (Routine); Ordered 10/08/21 Ordered By: Khadar Elias Diet: advance to usual diet Activity on Discharge: As tolerated Stand Alone Forms: Patient Portal Discharge page Care Plan Goals: Read below Health Concerns: Read below Plan of Treatment: Read below Assessment: You were admitted to the hospital for reported abdominal pain, vomiting and diarrhea. Evaluated with images including CT scan, HIDA scan in seen by terrazzo polisher who did endoscopy. All previous studies were within normal. Her symptoms believed to be secondary to gastroenteritis. Advance your diet slowly at home Use Zofran as needed for nausea To follow-up with gastroenterology as scheduled. Discharge Date/Time: 10/08/21 12:50
--- NOTE | 2021-10-08 11:32 | MHC.CM.PN ---
Patient has been medically cleared for dc to home today, no services.
[2021-10-08 11:43] VITALS: BP 124/65; PULSE 59; RESP 20; TEMP 36.6; O2SAT 47
--- NOTE | 2021-10-08 13:58 | HO.POSTANES ---
Post Anesthesia Evaluation Post Anesthesia Evaluation Vital Signs: Vital Signs Temp Pulse Resp BP Pulse Ox 10/08/21 11:43 97.8 F 59 20 124/65 47 L 10/08/21 07:08 97.3 F 39 L 20 102/45 L 100 10/08/21 04:00 97.0 F 59 18 148/63 H 99 Anesthesia: Monitored Mental Status: Awake Pain Control: Satisfactory Nausea/Vomiting: None Hydration: Adequate Anesthesia-Related Issues: No Anes. Related Issues
== END 2021-10-08 12:50 | disposition home or self-care (01) | DRG 249 ==
LOC: HO.ED 22:05 → HO.EDOVER 22:24 → HO.S3 10-05 00:57
PROVIDERS: Internal Medicine; Admitting Provider Internal Medicine; Emergency Provider Emergency Medicine Emergency Medical Services; Visit Provider Student in an Organized Health Care Education/Training Program
PROC: 0DJ08ZZ Inspection of Upper Intestinal Tract, Via Natural or Artificial Opening Endoscopic (ICD-10-PCS; CPT 43235; principal; 2021-10-07 16:30)
DX: K52.9 Noninfective gastroenteritis and colitis, unspecified (principal); Z20.822 Contact with and (suspected) exposure to COVID-19; Z88.0 Allergy status to penicillin; Z79.899 Other long term (current) drug therapy
CPT/HCPCS: 36415; 74177; 76705; 78226; 80048; 80053; 80076; 82150; 82947; 83605; 83690; 84443; 85025; 85027; 85652; 86140; 87040; 87635; 88305; 88342; 96361; 96374; 96375; 96376; 99285; A9537; J1170; J1650; J2270; J2405; J2765; J3010; Q0163; Q9967

== ENCOUNTER 2021-10-14 13:44 | Emergency (ER) | payer MEDICAID, SELFPAY ==
--- NOTE | ~2021-10-14 | US_ITS ---
EXAMINATION: US ABDOMEN LIMITED CLINICAL INFORMATION: Increasing right upper quadrant pain. COMPARISON: Abdominal ultrasound and CT abdomen pelvis 10/04/2021 TECHNIQUE: Real-time imaging of the gallbladder was obtained. FINDINGS: Again demonstrated is a physiologically distended gallbladder. Echogenic mobile debris is again noted within the gallbladder. There are no definitive shadowing gallstones identified. No gallbladder wall thickening or pericholecystic fluid appreciated. The common bile duct is normal measuring 4 mm in diameter. US/US abdomen limited IMPRESSION: Similar appearance of the gallbladder demonstrating echogenic debris without definitive gallstones or ultrasound evidence to suggest acute cholecystitis.
--- NOTE | ~2021-10-14 | CT_ITS ---
EXAMINATION: CT ABDOMEN AND PELVIS WITHOUT CONTRAST CLINICAL INFORMATION: Diffuse abdominal pain with nausea, vomiting and diarrhea COMPARISON: CT abdomen pelvis just over one week ago on 10/04/2021 TECHNIQUE: Multidetector volumetric imaging was performed from the superior aspect of the liver through the pubic symphysis. Oral contrast was administered, but IV contrast was not. Sagittal and coronal reformatted images were obtained on the technologist's workstation. The exam is markedly limited by lack of IV contrast as the patient has very little retroperitoneal fat present. This CT examination was performed using dose optimization techniques as appropriate, variously including the following: *Automated exposure control *Adjustment of mA and/or kV according to patient size (this includes techniques or standardized protocols for targeted exams where dose is matched to indication/reason for exam; i.e. extremities or head) *Use of iterative reconstruction technique DLP: 497 mGy-cm FINDINGS: LUNG BASES: The visualized lung bases are unremarkable. LIVER, GALLBLADDER, AND BILIARY TREE: The liver is enlarged measuring 19.8 cm in cephalocaudad dimension (1 cm larger than prior) but is normal in shape and attenuation. No focal hepatic lesion or biliary ductal dilatation is present although assessment is limited without IV contrast. The gallbladder is unremarkable with no evidence of radiopaque gallstones, gallbladder wall thickening, or obvious pericholecystic inflammatory changes. PANCREAS: Poorly assessed without IV contrast but no abnormality is seen SPLEEN: Unremarkable. ADRENAL GLANDS: Unremarkable. KIDNEYS AND URETERS: The kidneys are normal in size, shape, and attenuation. Assessment for renal masses is limited but none were seen on the study just over one week ago. No hydronephrosis, hydroureter, or calculi seen. No perinephric stranding. BLADDER: Unremarkable. GASTROINTESTINAL TRACT: The small and large bowel are unremarkable. The small bowel is well opacified with contrast. Some contrast is in the right colon. The appendix is none identified but there is no evidence of appendicitis.. ABDOMINAL WALL: No significant hernia is appreciated. LYMPH NODES: No retroperitoneal lymphadenopathy detected. Assessment is extremely limited without IV contrast. VASCULAR: Unremarkable. PELVIC VISCERA: Unremarkable. OSSEOUS STRUCTURES: Unremarkable. CT/CT abdomen pelvis wo con IMPRESSION: Study is limited by lack of IV contrast. No definite abnormality is seen aside from hepatomegaly. Fleischner guidelines were followed.
[2021-10-14 14:09] VITALS: BP 113/75; PULSE 63; RESP 16; TEMP 36.3; O2SAT 98; BMI 20.7
[2021-10-14] MEDS: Magnesium Hydrox/Alum Hydrox 30 ML ORAL.SUSP PO (15:17)
[2021-10-14] MEDS: Lidocaine HCl Viscous 2 % 15 ML SOLUTION MUCOUS MEM (15:18)
[2021-10-14] MEDS: 0.9 % Sodium Chloride 1,000 ML 999 ML IV ×2 (15:18→18:34)
[2021-10-14] MEDS: Famotidine/PF 20 MG/2 ML VIAL IVPUSH (15:18)
[2021-10-14] MEDS: ondansetron HCL 4 MG/2 ML VIAL IVPUSH (15:18)
[2021-10-14 15:23] LABS: MANUAL DIFF FLAG NO
[2021-10-14 15:24] LABS: Basophils Percent Auto 0.4 % (0-2); Eosinophils Percent Auto 0.6 % (0-4); Hematocrit 39.2 % (42.0-52.0); Hemoglobin 13.3 g/dl (14.0-18.0); Imm Gran Abs Auto 0.01 X10*3/uL (0.00-0.03); Imm Gran Pct Auto 0.2 % (0.0-0.4); Lymphocytes Absolute Auto 2.4 X10*3/uL (1.2-4.9); Lymphocytes Percent Auto 47.9 % (20-40); Mean Corpuscular HGB Conc 33.9 g/dl (31.0-36.0); Mean Corpuscular Hemoglobin 30.4 pg (27.0-33.0); Mean Corpuscular Volume 89.7 fL (80.0-98.0); Mean Platelet Volume 10.8 fL (9.4-12.4); Monocytes Absolute Auto 0.4 X10*3/uL (0.1-1.2); Monocytes Percent Auto 6.9 % (2-11); Neutrophils Absolute Auto 2.2 x10*3/uL (2.0-8.3); Platelet Count 198 X10*3/uL (160-400); Red Blood Count 4.37 X10*6/uL (4.60-5.80); White Blood Count 5.1 X10*3/uL (4.8-10.8)
--- NOTE | 2021-10-14 15:25 | ED.ABDPAIN ---
HPI - Abdominal Pain General Chief Complaint: Abdominal Pain <YULY Macdonald Last Filed: 10/14/21 18:13> Stated Complaint: abd pain, vomiting <YULY Macdonald Last Filed: 10/14/21 18:13> Time Seen by Provider: 10/14/21 14:39 <YULY Macdonald Last Filed: 10/14/21 18:13> Source: patient <YULY Macdonald Last Filed: 10/14/21 18:13> Mode of arrival: ambulatory <YULY Macdonald Last Filed: 10/14/21 18:13> History of Present Illness HPI narrative: 21-year-old male with PMHx of ulcerative colitis on Humira and sclerosing cholangitis, presenting to the ED complaining of diffuse abdominal pain, nausea, vomiting/dry heaving and nonbloody diarrhea x1 week. Reports inability to tolerate p.o. Reports similar symptoms recently which he was admitted to our facility on 10/04/2021, CT/ultrasound/HIDA scan unremarkable, suspected gastroenteritis. Patient was discharged on 10/08/21. Denies fever, chills, suspicious food intake, CP/SOB <YULY Macdonald Last Filed: 10/14/21 18:13> MD elicited complaint: abdominal pain <YULY Macdonald Last Filed: 10/14/21 18:13> Onset (ago): day(s) <YULY Macdonald Last Filed: 10/14/21 18:13> Related Data Home Medications: Home Medications Medication Instructions Recorded Confirmed adalimumab 40 mg/0.8 mL 40 mg SUBCUT QWEEK 10/05/21 10/14/21 subcutaneous syringe kit (Humira) ursodiol 300 mg capsule 300 mg PO BID 10/05/21 10/14/21 Previous Rx's Medication Instructions Recorded ondansetron 4 mg disintegrating 4 mg PO Q8H PRN #14 tab 10/08/21 tablet dicyclomine 20 mg tablet 20 mg PO QID PRN #20 tab 10/14/21 oxycodone 5 mg tablet 5 mg PO Q6H PRN #20 tab 10/14/21 <YULY Macdonald Last Filed: 10/14/21 18:13> Allergies/Adverse Reactions: Allergies Allergy/AdvReac Type Severity Reaction Status Date / Time amoxicillin [From Augmentin] Allergy Hives Verified 10/14/21 14:09 clavulanic acid Allergy Hives Verified 10/14/21 14:09 [From Augmentin] <YULY Macdonald - Last Filed: 10/14/21 18:13> Review of Systems Review of Systems Constitutional: No Fever, No Chills, No Fatigue, No Malaise ENT/Mouth: No Ear Pain, No Nasal Congestion, No sore throat, No Rhinorrhea, No Swallowing Difficulty Eyes: No Eye Pain, No Swelling, No Redness Cardiovascular: No Chest Pain, No SOB, No Edema Respiratory: No Cough, No Sputum, No Dyspnea Gastrointestinal: + Nausea, + Vomiting, + Diarrhea, No Constipation, + Abdominal pain, No Hematochezia, No Melena Genitourinary: No Dysuria, No Urinary Frequency, No Hematuria, No Urinary Incontinence, No Urgency, No Flank Pain Musculoskeletal: No joint pain, No Myalgias, No Joint Swelling Skin: No Skin Lesions, No rash Neuro: No Weakness, No Numbness, No Dizziness, No Headache <YULY Macdonald - Last Filed: 10/14/21 18:13> Yes all other systems are reviewed and are negative <YULY Macdonald - Last Filed: 10/14/21 18:13> Physical Exam Vital Signs: Vital Signs: Last Vital Signs Temp 98.4 F 10/14/21 21:56 Pulse 75 10/14/21 21:56 Resp 17 10/14/21 21:56 BP 127/73 10/14/21 21:56 Pulse Ox 98 10/14/21 21:56 BMI result Body Mass Index 20.7 <YULY Macdonald - Last Filed: 10/14/21 18:13> Vital Signs: Last Vital Signs Temp 98.4 F 10/14/21 21:56 Pulse 75 10/14/21 21:56 Resp 17 10/14/21 21:56 BP 127/73 10/14/21 21:56 Pulse Ox 98 10/14/21 21:56 BMI result Body Mass Index 20.7 <Christo Melissa MD - Last Filed: 10/14/21 23:24> Const: General: cooperative, alert and awake <Toya Mcmanus PA - Last Filed: 10/14/21 18:13> Orientation/consciousness: patient oriented x3 <YULY Macdonald - Last Filed: 10/14/21 18:13> Limitations: no limitations <Toya Mcmanus PA - Last Filed: 10/14/21 18:13> HENMT: Head: Yes normal to inspection and Yes atraumatic <Toya Mcmanus PA - Last Filed: 10/14/21 18:13> Ears: hearing grossly normal bilaterally <Toya Mcmanus PA - Last Filed: 10/14/21 18:13> General nose exam: Normal external nose present <Toya Mcmanus PA - Last Filed: 10/14/21 18:13> Face and sinus: Yes normal facial exam <YULY Macdonald - Last Filed: 10/14/21 18:13> Eyes: General: appearance normal, both eyes and all related structures <Toya Mcmanus PA - Last Filed: 10/14/21 18:13> EOM: EOMs intact bilaterally <Toya Mcmanus PA - Last Filed: 10/14/21 18:13> Neck: Neck: Yes normal visual inspection and Yes no meningeal signs <Toya Mcmanus PA - Last Filed: 10/14/21 18:13> Resp: Effort & Inspection: normal respiratory effort and no respiratory distress <Toya Mcmanus PA - Last Filed: 10/14/21 18:13> Auscultation: clear to auscultation bilaterally, no rales, no rhonchi and no wheezes <Toya Mcmanus PA - Last Filed: 10/14/21 18:13> Cardio: Rate: regular rate <Toya Mcmanus PA - Last Filed: 10/14/21 18:13> Heart sounds: S1 normal heart sound present and S2 normal heart sound present <Toya Mcmanus PA - Last Filed: 10/14/21 18:13> GI: Inspection: Yes normal to inspection <YULY Macdonald - Last Filed: 10/14/21 18:13> Palpation (GI): Soft to palpation, Tenderness to palpation present (GI) in the RUQ and suprapubicly, no guarding and not rigid <YULY Macdonald - Last Filed: 10/14/21 18:13> : General: Yes no CVA tenderness <YULY Macdonald - Last Filed: 10/14/21 18:13> Back/Spine/Pelvis: Back: no CVA tenderness <YULY Macdonald - Last Filed: 10/14/21 18:13> Skin: Rashes: no rashes <YULY Macdonald - Last Filed: 10/14/21 18:13> Wounds: no wounds <YULY Macdonald - Last Filed: 10/14/21 18:13> Neuro: General: patient oriented x3 and no meningeal signs <YULY Macdonald - Last Filed: 10/14/21 18:13> Gait exam (Neuro): Normal gait present <YULY Macdonald - Last Filed: 10/14/21 18:13> Extrem: General: Yes normal to inspection <YULY Macdonald - Last Filed: 10/14/21 18:13> Course Course Course Narrative: -1704--no leukocytosis. H&H stable. ESR/CRP WNL. > will consult GI US abdomen limited IMPRESSION: Similar appearance of the gallbladder demonstrating echogenic debris without definitive gallstones or ultrasound evidence to suggest acute cholecystitis. -spoke to GI Dr. Fernández who recommended repeat CT with Oral contrast. If CT shows colitis recommends steroids. Spoke to patient about recommendations but he would like to hold off on CT due to radiation concern > additional pain management given, will re-evaluate -1808--re-evaluated patient, still in significant amount of pain, case discussed with Dr. Melissa who also evaluated patient. Patient now agreeable to CT with p.o. contrast. Plan will be likely admission for further management -1800--ED transferred to Dr. Melissa pending CT results and dispo per results <YULY Macdonald - Last Filed: 10/14/21 18:13> MDM - Abdominal Pain MDM Narrative Medical decision making narrative: 21-year-old male with PMHx of ulcerative colitis on Humira and sclerosing cholangitis, presenting to the ED complaining of diffuse abdominal pain, nausea, vomiting/dry heaving and nonbloody diarrhea x1 week. On exam vital signs stable, NAD, abdomen soft with right upper quadrant/suprapubic tenderness to palpation, no rebound or guarding, no CVAT. Concern for cholecystitis/lithiasis vs pancreatitis vs UTI vs colitis fare Plan: Labs, UA, repeat ultrasound, IVF, pain management <YULY Macdonald - Last Filed: 10/14/21 18:13> 21-year-old male with PMHx of ulcerative colitis on Humira and sclerosing cholangitis, presenting to the ED complaining of diffuse abdominal pain, nausea, vomiting/dry heaving and nonbloody diarrhea x1 week. On exam vital signs stable, NAD, abdomen soft with right upper quadrant/suprapubic tenderness to palpation, no rebound or guarding, no CVAT. Concern for cholecystitis/lithiasis vs pancreatitis vs UTI vs colitis fare Plan: Labs, UA, repeat ultrasound, IVF, pain management Patient's CT scan negative labs are stable still complaining of pain does not want to go home will call Dr. Fernández plan to discharge him home see him as outpatient <Christo Melissa MD - Last Filed: 10/14/21 23:24> Differential Diagnosis Differential diagnosis: Likely abdominal pain, gastroenteritis, gastritis, pancreatitis and peptic ulcer disease <YULY Macdonald - Last Filed: 10/14/21 18:13> Medical Records Attestation: I reviewed the patient's medical records. <YULY Macdonald - Last Filed: 10/14/21 18:13> Lab Data Attestation: I reviewed the patient's lab results. <YULY Macdonald - Last Filed: 10/14/21 18:13> Result diagrams: : 10/14/21 15:16 10/14/21 15:16 <YULY Macdonald - Last Filed: 10/14/21 18:13> Labs: Lab Results 10/14/21 10/14/21 10/14/21 Range/Units 15:16 15:16 15:16 WBC 5.1 (4.8-10.8) X10*3/uL RBC 4.37 L (4.60-5.80) X10*6/uL Hgb 13.3 L (14.0-18.0) g/dl Hct 39.2 L (42.0-52.0) % MCV 89.7 (80.0-98.0) fL MCH 30.4 (27.0-33.0) pg MCHC 33.9 (31.0-36.0) g/dl RDW 12.0 (11.0-16.0) % Plt Count 198 (160-400) X10*3/uL MPV 10.8 (9.4-12.4) fL Immature Gran % (Auto) 0.2 (0.0-0.4) % Neut % (Auto) 44.0 L (45-73) % Lymph % (Auto) 47.9 H (20-40) % Charles % (Auto) 6.9 (2-11) % Eos % (Auto) 0.6 (0-4) % Baso % (Auto) 0.4 (0-2) % Lymph # (Auto) 2.4 (1.2-4.9) X10*3/uL Charles # (Auto) 0.4 (0.1-1.2) X10*3/uL Eos # (Auto) 0.0 (0.0-0.4) X10*3/uL Baso # (Auto) 0.0 (0.0-0.2) X10*3/uL Abs Immat Gran (auto) 0.01 (0.00-0.03) X10*3/uL Absolute Neuts (auto) 2.2 (2.0-8.3) x10*3/uL Absolute Nucleated RBC 0.000 (0.0-0.012) X10*3/uL Nucleated RBC % (auto) 0.0 (0.0-0.2) /100WBC ESR 2 (0-15) MM/HR Sodium 141 (135-145) mmol/L Potassium 4.3 (3.3-5.1) mmol/L Chloride 105 (96-108) mmol/L Carbon Dioxide 31 H (22-29) mmol/L Anion Gap 9 L (12-20) BUN 10 (9-16) mg/dL Creatinine 0.94 (0.5-1.4) mg/dL Estim Creat Clear Calc 140.7 Estimated GFR > 60 Random Glucose 76 D (60-115) mg/dL Lactic Acid (0.5-2.0) mmol/L Calcium 9.9 D (8.4-10.2) mg/dL Magnesium 2.5 (1.6-2.6) mg/dL Total Bilirubin 0.9 (0.0-1.0) mg/dL Direct Bilirubin 0.4 (0.0-0.5) mg/dL AST 14 (5-37) U/L ALT 13 (0-40) U/L Alkaline Phosphatase 45 (39-117) U/L C-Reactive Protein < 0.02 (< or = 0.50) mg/dL Total Protein 7.1 (6.5-8.0) g/dL Albumin 4.5 (3.5-5.0) g/dL Lipase 44 (8-78) U/L COVID-19 (ROBIN) (Negative) COVID-19 Clin Com 10/14/21 10/14/21 Range/Units 15:16 15:17 WBC (4.8-10.8) X10*3/uL RBC (4.60-5.80) X10*6/uL Hgb (14.0-18.0) g/dl Hct (42.0-52.0) % MCV (80.0-98.0) fL MCH (27.0-33.0) pg MCHC (31.0-36.0) g/dl RDW (11.0-16.0) % Plt Count (160-400) X10*3/uL MPV (9.4-12.4) fL Immature Gran % (Auto) (0.0-0.4) % Neut % (Auto) (45-73) % Lymph % (Auto) (20-40) % Charles % (Auto) (2-11) % Eos % (Auto) (0-4) % Baso % (Auto) (0-2) % Lymph # (Auto) (1.2-4.9) X10*3/uL Charles # (Auto) (0.1-1.2) X10*3/uL Eos # (Auto) (0.0-0.4) X10*3/uL Baso # (Auto) (0.0-0.2) X10*3/uL Abs Immat Gran (auto) (0.00-0.03) X10*3/uL Absolute Neuts (auto) (2.0-8.3) x10*3/uL Absolute Nucleated RBC (0.0-0.012) X10*3/uL Nucleated RBC % (auto) (0.0-0.2) /100WBC ESR (0-15) MM/HR Sodium (135-145) mmol/L Potassium (3.3-5.1) mmol/L Chloride (96-108) mmol/L Carbon Dioxide (22-29) mmol/L Anion Gap (12-20) BUN (9-16) mg/dL Creatinine (0.5-1.4) mg/dL Estim Creat Clear Calc Estimated GFR Random Glucose (60-115) mg/dL Lactic Acid 0.7 (0.5-2.0) mmol/L Calcium (8.4-10.2) mg/dL Magnesium (1.6-2.6) mg/dL Total Bilirubin (0.0-1.0) mg/dL Direct Bilirubin (0.0-0.5) mg/dL AST (5-37) U/L ALT (0-40) U/L Alkaline Phosphatase (39-117) U/L C-Reactive Protein (< or = 0.50) mg/dL Total Protein (6.5-8.0) g/dL Albumin (3.5-5.0) g/dL Lipase (8-78) U/L COVID-19 (ROBIN) Negative (Negative) COVID-19 Clin Com See Note <YULY Macdonald - Last Filed: 10/14/21 18:13> Lab Results 10/14/21 10/14/21 10/14/21 Range/Units 15:16 15:16 15:16 WBC 5.1 (4.8-10.8) X10*3/uL RBC 4.37 L (4.60-5.80) X10*6/uL Hgb 13.3 L (14.0-18.0) g/dl Hct 39.2 L (42.0-52.0) % MCV 89.7 (80.0-98.0) fL MCH 30.4 (27.0-33.0) pg MCHC 33.9 (31.0-36.0) g/dl RDW 12.0 (11.0-16.0) % Plt Count 198 (160-400) X10*3/uL MPV 10.8 (9.4-12.4) fL Immature Gran % (Auto) 0.2 (0.0-0.4) % Neut % (Auto) 44.0 L (45-73) % Lymph % (Auto) 47.9 H (20-40) % Charles % (Auto) 6.9 (2-11) % Eos % (Auto) 0.6 (0-4) % Baso % (Auto) 0.4 (0-2) % Lymph # (Auto) 2.4 (1.2-4.9) X10*3/uL Charles # (Auto) 0.4 (0.1-1.2) X10*3/uL Eos # (Auto) 0.0 (0.0-0.4) X10*3/uL Baso # (Auto) 0.0 (0.0-0.2) X10*3/uL Abs Immat Gran (auto) 0.01 (0.00-0.03) X10*3/uL Absolute Neuts (auto) 2.2 (2.0-8.3) x10*3/uL Absolute Nucleated RBC 0.000 (0.0-0.012) X10*3/uL Nucleated RBC % (auto) 0.0 (0.0-0.2) /100WBC ESR 2 (0-15) MM/HR Sodium 141 (135-145) mmol/L Potassium 4.3 (3.3-5.1) mmol/L Chloride 105 (96-108) mmol/L Carbon Dioxide 31 H (22-29) mmol/L Anion Gap 9 L (12-20) BUN 10 (9-16) mg/dL Creatinine 0.94 (0.5-1.4) mg/dL Estim Creat Clear Calc 140.7 Estimated GFR > 60 Random Glucose 76 D (60-115) mg/dL Lactic Acid (0.5-2.0) mmol/L Calcium 9.9 D (8.4-10.2) mg/dL Magnesium 2.5 (1.6-2.6) mg/dL Total Bilirubin 0.9 (0.0-1.0) mg/dL Direct Bilirubin 0.4 (0.0-0.5) mg/dL AST 14 (5-37) U/L ALT 13 (0-40) U/L Alkaline Phosphatase 45 (39-117) U/L C-Reactive Protein < 0.02 (< or = 0.50) mg/dL Total Protein 7.1 (6.5-8.0) g/dL Albumin 4.5 (3.5-5.0) g/dL Lipase 44 (8-78) U/L COVID-19 (ROBIN) (Negative) COVID-19 Clin Com 10/14/21 10/14/21 Range/Units 15:16 15:17 WBC (4.8-10.8) X10*3/uL RBC (4.60-5.80) X10*6/uL Hgb (14.0-18.0) g/dl Hct (42.0-52.0) % MCV (80.0-98.0) fL MCH (27.0-33.0) pg MCHC (31.0-36.0) g/dl RDW (11.0-16.0) % Plt Count (160-400) X10*3/uL MPV (9.4-12.4) fL Immature Gran % (Auto) (0.0-0.4) % Neut % (Auto) (45-73) % Lymph % (Auto) (20-40) % Charles % (Auto) (2-11) % Eos % (Auto) (0-4) % Baso % (Auto) (0-2) % Lymph # (Auto) (1.2-4.9) X10*3/uL Charles # (Auto) (0.1-1.2) X10*3/uL Eos # (Auto) (0.0-0.4) X10*3/uL Baso # (Auto) (0.0-0.2) X10*3/uL Abs Immat Gran (auto) (0.00-0.03) X10*3/uL Absolute Neuts (auto) (2.0-8.3) x10*3/uL Absolute Nucleated RBC (0.0-0.012) X10*3/uL Nucleated RBC % (auto) (0.0-0.2) /100WBC ESR (0-15) MM/HR Sodium (135-145) mmol/L Potassium (3.3-5.1) mmol/L Chloride (96-108) mmol/L Carbon Dioxide (22-29) mmol/L Anion Gap (12-20) BUN (9-16) mg/dL Creatinine (0.5-1.4) mg/dL Estim Creat Clear Calc Estimated GFR Random Glucose (60-115) mg/dL Lactic Acid 0.7 (0.5-2.0) mmol/L Calcium (8.4-10.2) mg/dL Magnesium (1.6-2.6) mg/dL Total Bilirubin (0.0-1.0) mg/dL Direct Bilirubin (0.0-0.5) mg/dL AST (5-37) U/L ALT (0-40) U/L Alkaline Phosphatase (39-117) U/L C-Reactive Protein (< or = 0.50) mg/dL Total Protein (6.5-8.0) g/dL Albumin (3.5-5.0) g/dL Lipase (8-78) U/L COVID-19 (ROBIN) Negative (Negative) COVID-19 Clin Com See Note <Christo Melissa MD - Last Filed: 10/14/21 23:24> Discharge Plan Discharge Clinical Impression: Abdominal pain, Diarrhea, Nausea & vomiting <YULY Macdonald - Last Filed: 10/14/21 18:13> Patient Disposition: Home, Self-Care <YULY Macdonald - Last Filed: 10/14/21 18:13> Instructions: Abdominal Pain (ED) <YULY Macdonald - Last Filed: 10/14/21 18:13> Additional Instructions: Drink plenty of fluids Taking medication as prescribed Pain medication as prescribed Follow-up with type photography supervisor <YULY Macdonald - Last Filed: 10/14/21 18:13> Prescriptions: New dicyclomine 20 mg tablet 20 mg PO QID PRN (Reason: abdominal pain) Qty: 20 0RF oxycodone 5 mg tablet 5 mg PO Q6H PRN (Reason: Pain, Severe) Qty: 20 0RF No Action Humira 40 mg/0.8 mL Syringe Kit 40 mg SUBCUT QWEEK 0RF ursodiol 300 mg Capsule 300 mg PO BID 0RF ondansetron 4 mg tablet,disintegrating 4 mg PO Q8H PRN (Reason: nausea and vomiting) Qty: 14 0RF <YULY Macdonald - Last Filed: 10/14/21 18:13> Referrals: Walt Fernández [Physician] - 2 days <YULY Macdonald - Last Filed: 10/14/21 18:13> [facility] Past Medical History Attestation statement: The following information was validated with the patient. <YULY Macdonald - Last Filed: 10/14/21 18:13> Medical History: Medical History Sclerosing cholangitis Ulcerative colitis <YULY Macdonald - Last Filed: 10/14/21 18:13> Surgical History: Surgical History No pertinent past surgical history <YULY Macdonald - Last Filed: 10/14/21 18:13> Social History Social History: Social History Household Members: Significant Other and Friend(s) Housing: Apartment Alcohol intake: current Alcohol intake frequency: holidays/special occasions only Patient Tobacco Use Status: Never used Tobacco Use of substances other than those prescribed or required for medical reasons: No Advance Directives: No Advance Directives Information Provided: No service: No Current occupational status: employed <YULY Macdonald - Last Filed: 10/14/21 18:13>
--- NOTE | 2021-10-14 15:38 | PC.NURSE ---
IV placed 20G R AC, labs drawn, medicated per provider order.
[2021-10-14 15:40] LABS: COVID-19 Test Negative (Negative)
[2021-10-14 15:42] LABS: Lactic Acid 0.7 mmol/L (0.5-2.0)
[2021-10-14 15:55] LABS: Alanine Aminotransferase 13 U/L (0-40); Albumin Level 4.5 g/dL (3.5-5.0); Alkaline Phosphatase 45 U/L (39-117); Anion Gap 9 (12-20); Aspartate Amino Transferase 14 U/L (5-37); Bilirubin Direct 0.4 mg/dL (0.0-0.5); Bilirubin Total 0.9 mg/dL (0.0-1.0); Blood Urea Nitrogen 10 mg/dL (9-16); C Reactive Protein < 0.02 mg/dL (< or = 0.50); Calcium 9.9 mg/dL (8.4-10.2); Carbon Dioxide 31 mmol/L (22-29); Chloride 105 mmol/L (96-108); Creatinine Clr Calc Pharmacy 140.7; Estimated Glomerular Filt Rate > 60; Glucose Random 76 mg/dL (60-115); Lipase 44 U/L (8-78); Magnesium 2.5 mg/dL (1.6-2.6); Potassium 4.3 mmol/L (3.3-5.1); Sodium 141 mmol/L (135-145); Total Protein 7.1 g/dL (6.5-8.0)
[2021-10-14 16:03] LABS: Erythrocyte Sedimentation Rate 2 MM/HR (0-15)
--- NOTE | 2021-10-14 16:37 | PC.NURSE ---
patient a&ox3, pt still c/o 05/17 rt abd pain, will notify provider and continue to monitor.
[2021-10-14] MEDS: Ketorolac Tromethamine 30 MG/ML VIAL 15 MG IVPUSH (17:10)
[2021-10-14 18:00] VITALS: BP 126/67; PULSE 51; RESP 17; O2SAT 98
[2021-10-14] MEDS: Dicyclomine HCl 10 MG CAPSULE 20 MG PO ×2 (18:34→23:46)
[2021-10-14] MEDS: Pantoprazole Sodium 40 MG/10 ML VIAL IVPUSH (18:35)
[2021-10-14] MEDS: Morphine Sulfate 2 MG/ML CARTRIDGE IVPUSH (18:35)
--- NOTE | 2021-10-14 18:39 | PC.NURSE ---
patient a&ox3, vss, pt medicated per order, ivf hanging per order, call pérez within reach, will continue to monitor.
--- NOTE | 2021-10-14 19:31 | PC.NURSE ---
patient drinking contrast for ct scan
--- NOTE | 2021-10-14 20:46 | PHA.MEDREC ---
MED REC COMPLETE, PATIENT DOES TAKE URSODIOL AND HUMIRA AT HOME, BUT HAS NOT TAKEN IN AT LEAST A MONTH Pharmacy Consult ? Medication Reconciliation Pharmacy has completed the medication reconciliation.
[2021-10-14] MEDS: Barium Sulfate Oral (Vanilla) 450 ML ORAL.SUSP 900 ML PO (21:22)
[2021-10-14 21:56] VITALS: BP 127/73; PULSE 75; RESP 17; TEMP 36.9; O2SAT 98
== END 2021-10-14 23:44 | disposition home or self-care (01) ==
PROVIDERS: Physician Assistant; Emergency Provider Internal Medicine
DX: R10.9 Unspecified abdominal pain (principal); R11.2 Nausea with vomiting, unspecified; R19.7 Diarrhea, unspecified; Z20.822 Contact with and (suspected) exposure to COVID-19
CPT/HCPCS: 74176; 76705; 80048; 80076; 83605; 83690; 83735; 85025; 85652; 86140; 87635; 96361; 96374; 96375; 99284; J1885; J2270; J2405